=== PATIENT | male | born 1940 | race Caucasian/White ===

== ENCOUNTER 2018-03-30 12:50 | Emergency (ER) | payer OTHER ==
[2018-03-30] MEDS: amLODIPine 5 MG TAB PO (13:36)
== END 2018-03-30 14:38 | disposition home or self-care (01) ==
LOC: M ED 12:50
DX: S00.03XA Contusion of scalp, initial encounter (principal); W18.00XA Striking against unspecified object with subsequent fall, initial encounter; Y92.019 Unspecified place in single-family (private) house as the place of occurrence of the external cause
CPT/HCPCS: 70450

== ENCOUNTER 2018-11-04 08:13 | Emergency (ER) | payer MEDICARE, OTHER ==
[~2018-11-04] VITALS: Ht 170.2 cm; Wt 98.6 kg
[~2018-11-04 08:13] MED LIST: AMLO5TAB6 PO; ASPI81TAEC PO; AUGM500T34 PO; BETA0.0543 EXT; ELIQ5TAB PO; FINA5TAB2 PO; FISH100049 PO; FLOM0.4C39 PO; GARL10004 PO; GEMF600T5 PO; INDA125TA PO; MUPI2OI EXT; NAPR1TAB86 PO; QUIN1TAB3 PO; VITA100066 PO; XARE20TA
[2018-11-04] MEDS ORDERED: CVS400CA PO (08:32)
[2018-11-04] MEDS ORDERED: CETI10CA13 PO (08:32)
[2018-11-04 08:52] LABS: BASO % 0.5 % (0.0-1.0); EOS % 0.6 % (0.0-3.0); HEMATOCRIT 39.8 % (42.0-52.0); HEMOGLOBIN 13.7 g/dl (13.5-17.5); LYMPH # 1.3 10^3/uL (1.5-4.5); LYMPH % 19.8 % (24.0-44.0); MEAN CORPUSCULAR HEMOGLOBIN 32.6 pg (27.0-33.0); MEAN CORPUSCULAR HGB CONC 34.4 g/dl (32.0-36.5); MEAN CORPUSCULAR VOLUME 94.8 fl (80.0-96.0); MONO # 0.5 10^3/uL (0.0-0.8); MONO % 6.8 % (0.0-5.0); NEUTROPHILS # 4.8 10^3/uL (1.8-7.7); NEUTROPHILS % 71.5 % (36.0-66.0); PLATELET COUNT, AUTOMATED 205 10^3/uL (150-450); WHITE BLOOD COUNT 6.7 10^3/uL (4.0-10.0)
[2018-11-04] MEDS: NITROGLYCERIN 0.4 MG SUBL TABLET SL PRN ×6 (09:10→10:11)
[2018-11-04] MEDS ORDERED: ASPIRIN 81 MG CHEW TABLET PO ONE (09:15)
[2018-11-04 09:17] LABS: BLOOD UREA NITROGEN 17 MG/DL (7-18); CARBON DIOXIDE LEVEL 27 MEQ/L (21-32); CHLORIDE LEVEL 103 MEQ/L (98-107); CPK CREATINE PHOSPHOKINASE 119 U/L (39-308); CREATININE FOR GFR 1.12 MG/DL (0.70-1.30); GLOMERULAR FILTRATION RATE > 60.0 (>42); GLUCOSE, FASTING 149 MG/DL (70-100); MB/CK RELATIVE INDEX 3.36 (< OR =4); POTASSIUM SERUM 3.7 MEQ/L (3.5-5.1); SODIUM LEVEL 137 MEQ/L (136-145); TROPONIN I 0.15 NG/ML (< 0.10)
[2018-11-04 09:31] LABS: INR 1.55; PROTHROMBIN TIME 18.8 SECONDS (12.1-14.4)
[2018-11-04 09:33] LABS: PARTIAL THROMBOPLASTIN TIME 57.7 SECONDS (25.4-37.6)
--- NOTE | 2018-11-04 09:47 | REP ---
CHEST, SINGLE VIEW: Single view of the chest is performed and compared to a prior study of 04/25/2016. There is mild cardiomegaly. There are mild chronic interstitial changes. There is no acute infiltrate. The mediastinal silhouette is unchanged. There is a left single lead pacemaker. IMPRESSION: Cardiomegaly without evidence of acute infiltrate. Electronically Signed by Jersey Beckwith MD 11/06/2018 11:42 A
[2018-11-04 10:11] VITALS: BP 113/65
[2018-11-04 11:26] LABS: MB/CK RELATIVE INDEX 7.43 (< OR =4); TROPONIN I 0.86 NG/ML (< 0.10)
[2018-11-04] MEDS ORDERED: HEPARIN DRIP 25,000 UNITS in APPROPRIATE DILUENT 1 EA IV SCH (11:39)
[2018-11-04] MEDS ORDERED: HEPARIN SOD (PORCINE) 5000 UNITS/ML VIAL As Ordered ONE (11:45)
[2018-11-04] MEDS ORDERED: HEPARIN 25,000 UNITS/250 ML D5W BAG (100 UNITS/ML) As Ordered ONE (11:45)
[2018-11-04] MEDS ORDERED: HEPARIN SOD (PORCINE) 5000 UNITS/ML VIAL IV ONE (12:00)
[2018-11-04] MEDS ORDERED: TICAGRELOR 90 MG TABLET (BRILINTA) PO ONE ×2 (12:00)
[2018-11-04 12:38] VITALS: BP 140/78
--- NOTE | 2018-11-04 14:57 | ECGEPIP ---
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
--- NOTE | 2018-11-04 14:59 | ECGEPIP ---
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
== END 2018-11-04 12:39 | disposition short-term general hospital (02) ==
LOC: M ED 08:13
DX: I21.4 Non-ST elevation (NSTEMI) myocardial infarction (principal); I20.0 Unstable angina; Z95.0 Presence of cardiac pacemaker; R94.31 Abnormal electrocardiogram [ECG] [EKG]; I51.7 Cardiomegaly; I10 Essential (primary) hypertension; E78.5 Hyperlipidemia, unspecified; Z79.899 Other long term (current) drug therapy; Z88.8 Allergy status to other drugs, medicaments and biological substances

== ENCOUNTER 2019-04-29 18:51 | Inpatient (IN) | payer MEDICARE ==
[~2019-04-29] VITALS: Ht 170.2 cm; Wt 91.0 kg
[2019-04-29] MEDS: QUINAPRIL 20 MG TAB PO SCH (02:12)
[~2019-04-29 18:51] MED LIST changes: +CETI10CA13 PO; +CVS400CA PO
[2019-04-29] MEDS ORDERED: METO1TAB32 (18:58)
[2019-04-29] MEDS ORDERED: ECOT81TA5 PO (18:58)
[2019-04-29 19:30] LABS: VENOUS BASE EXCESS -0.9 (-2.0-2.0); VENOUS HCO3 23.4 MEQ/L (23.0-27.0); VENOUS PARTIAL PRESSURE CO2 37.9 mmHg (38.0-50.0); VENOUS PARTIAL PRESSURE O2 29.5 mmHg (30.0-50.0); VENOUS PH 7.409 UNITS (7.330-7.430); VENOUS STANDARD HCO3 22.7 MEQ/L; VENOUS TOTAL CO2 24.6 MEQ/L (24.0-28.0)
[2019-04-29 19:35] LABS: BASO % 0.1 % (0.0-1.0); HEMATOCRIT 38.2 % (42.0-52.0); LYMPH # 0.8 10^3/uL (1.5-5.0); LYMPH % 8.3 % (24.0-44.0); MEAN CORPUSCULAR HEMOGLOBIN 32.4 pg (27.0-33.0); MEAN CORPUSCULAR VOLUME 95.3 fl (80.0-96.0); MONO # 0.7 10^3/uL (0.0-0.8); MONO % 7.4 % (0.0-5.0); NEUTROPHILS # 8.1 10^3/uL (1.5-8.5); NEUTROPHILS % 83.6 % (36.0-66.0); PLATELET COUNT, AUTOMATED 145 10^3/uL (150-450); RED BLOOD COUNT 4.01 10^6/uL (4.30-6.10); WHITE BLOOD COUNT 9.7 10^3/uL (4.0-10.0)
[2019-04-29 20:08] LABS: ALBUMIN 3.5 GM/DL (3.2-5.2); ALT/SGPT 49 U/L (12-78); BILIRUBIN,DIRECT 0.3 MG/DL (0.0-0.2); BILIRUBIN,TOTAL 0.8 MG/DL (0.2-1.0); BLOOD UREA NITROGEN 25 MG/DL (7-18); CALCIUM LEVEL 8.6 MG/DL (8.8-10.2); CARBON DIOXIDE LEVEL 26 MEQ/L (21-32); CHLORIDE LEVEL 100 MEQ/L (98-107); CK-MB VALUE MASS < 1.0 NG/ML (<3.6); CPK CREATINE PHOSPHOKINASE 221 U/L (39-308); CREATININE FOR GFR 1.62 MG/DL (0.70-1.30); GLOMERULAR FILTRATION RATE 44.2 (>42); GLUCOSE, FASTING 146 MG/DL (70-100); MB/CK RELATIVE INDEX 0.45 (< OR =4); NT-PRO BNP 2148 PG/ML (<450); POTASSIUM SERUM 3.2 MEQ/L (3.5-5.1); SODIUM LEVEL 136 MEQ/L (136-145); THYROID STIMULATING HORMONE 0.825 uIU/ML (0.358-3.740); THYROXINE (T4) 7.9 UG/DL (4.5-12.0); TOTAL PROTEIN 7.5 GM/DL (6.4-8.2); TROPONIN I 0.02 NG/ML (< 0.10)
[2019-04-29] MEDS: IPRATROPIUM 0.5MG/ALBUTEROL 2.5MG INH SOL UD 3ML (DUONEB)(J7620) NEB SCH ×3 (20:10→21:41)
[2019-04-29 20:20] LABS: INFLUENZA A AMPLIFICATION NEGATIVE (NEGATIVE); INFLUENZA B AMPLIFICATION NEGATIVE (NEGATIVE)
[2019-04-29] MEDS ORDERED: FUROSEMIDE 100 MG/10 ML VIAL (J1940) IV ONE (20:30)
[2019-04-29] MEDS ORDERED: dexameTHASONE 20 MG/5 ML VIAL (J1100) IV ONE (20:30)
[2019-04-29] MEDS ORDERED: ATOR40TA75 PO (20:43)
[2019-04-29] MEDS ORDERED: XARE15TA PO (20:43)
[2019-04-29] MEDS ORDERED: QUIN10TA32 PO (20:43)
[2019-04-29] MEDS ORDERED: BRIL90TA PO (20:43)
[2019-04-29] MEDS ORDERED: METO1TAB32 PO (20:44)
[2019-04-29] MEDS ORDERED: NITR4TASL SL (20:44)
[2019-04-29 20:49] LABS: APPEARANCE, URINE CLEAR (CLEAR); BACTERIA, URINE AUTO NEGATIVE (NEGATIVE); BILIRUBIN, URINE AUTO NEGATIVE (NEGATIVE); BLOOD, URINE BLOOD 2+ (NEGATIVE); COLOR, URINE YELLOW (YELLOW); GLUCOSE, URINE (UA) AUTO NEGATIVE (NEGATIVE); KETONE, URINE AUTO NEGATIVE (NEGATIVE); LEUKOCYTE ESTERASE, URINE AUTO NEGATIVE (NEGATIVE); MUCUS, URINE SMALL (NEGATIVE); NITRITE, URINE AUTO NEGATIVE (NEGATIVE); PROTEIN, URINE AUTO 1+ mg/dL (NEGATIVE); RBC, URINE AUTO 3 /HPF (0-3); SPECIFIC GRAVITY URINE AUTO 1.025 (1.002-1.035); SQUAMOUS EPITHELIAL CELL UR AU 0 /HPF (0-6); UROBILINOGEN, URINE AUTO 0.2 mg/dL (0.0-2.0); WBC, URINE AUTO 1 /HPF (0-3)
[2019-04-29] MEDS ORDERED: ALL10TAB29 PO (21:02)
[2019-04-29] MEDS ORDERED: GARL1000 PO (21:02)
[2019-04-29] MEDS ORDERED: ACETAMINOPHEN TAB 650MG DOSE (2X325MG) PO PRN (22:45)
[2019-04-29] MEDS ORDERED: POTASSIUM CHLORIDE 10 MEQ SR TABLET PO ONE (22:45)
--- NOTE | 2019-04-29 22:46 | HPEPDOC ---
[facility] Medical History & Physical Date of Admission Apr 29, 2019 Date of Service: Apr 29, 2019 Attending Physician: SHELIA FOFANA MD History and Physical TIME OF SERVICE: 11:40 PM CHIEF COMPLAINT: Shortness of breath HISTORY OF PRESENT ILLNESS: This is a 78-year-old male who presents with complaints of shortness of breath that began Friday afternoon. Yesterday evening the shortness of breath became so bad that he decided come to the hospital. He denies having shortness of breath while lying down flat. At his baseline he walks with a cane, but was not sure if he had worsening shortness of breath with exertion. He denies having sick contacts, denies having chest pain, and denies feeling like feeling like he is retaining water. He is also c/o runny nose, cough productive of clear sputum, fever, chills, and difficulty standing up without assistance. After receiving Lasix in the ED and voiding his dyspnea improved substantially; he also received DuoNeb's and steroids. REVIEW OF SYSTEMS: 12 point review of systems negative except as listed in HPI PAST MEDICAL/ SURGICAL HISTORY: Chronic CAD, status post placement of 2 stents in November of this year [place]. Chronic A. fib. Chronic hypertension. Status post pacemaker placement. He denies having a history of COPD, CHF, or diabetes SOCIAL HISTORY: He is a former smoker, quit over 40 years ago. He has a history of working in [employer]. He is FAMILY HISTORY: CAD ALLERGIES: Please see below. HOME MEDICATIONS: Please see below. PHYSICAL EXAMINATION: VITAL SIGNS: Please see below. GENERAL APPEARANCE: Well-nourished, well-developed, not in apparent distress, does not appear toxic, does not appear chronically ill HEENT: Normocephalic, atraumatic. Mucous membranes moist and pink CARDIOVASCULAR: Regular rate and rhythm. No murmurs, rubs or gallops. Has pacemaker at the right upper chest LUNGS: His lips acyanotic. He is able to his fecal sentences without having to stop to take breaths. He is not using accessory muscles. His lungs are clear to auscultation bilaterally ABDOMEN: Soft and nontender on palpation MUSCULOSKELETAL: Range of motion is intact in all 4 extremities is no lower extremity edema NEUROLOGICAL:. Cranial nerves II-12 are grossly intact. Speech is not dysarthric PSYCHIATRIC: Alert and oriented, able to understand and follow commands LABORATORY DATA: See below. IMAGING: Chest x-ray shows increased interstitial markings but no lesion, the final report is pending ASSESSMENT: Mr. Alanis is a 78-year-old male with a past history of chronic CAD, chronic HTN, atrial fibrillation, and pacemaker who is admitted for management of acute dyspnea possibly due to acute CHF. PLAN: 1. Dyspnea cause to be determined Since his BNP is greater than 2000, CHF is on the differential His symptoms improved after receiving Lasix. The troponin, TSH and influenza panel are unremarkable. The VBG shows low O2 Plan: Admit to medical floor/telemetry/monitor, continuous pulse oximetry/follow-up Is/OS, daily weights, fluid restriction to 2L or 67oz, salt restriction to 2G / f/u respiratory panel & final chest x-ray report / repeat BNP before discharge for prognostic purposes because high levels and levels that dont trend down are linked with increased mortality and rehospitalization /continue with Lasix 40 mg IV daily pending Echo 2. Bilateral lower extremity weakness. The patient reports having to walk with a cane at his baseline, but is having problems standing up on his own without assistance over the last few days. Plan: PT consult to prevent deconditioning during this admission and to det ermine if his inpatient rehabilitation versus home rehabilitation when he is ready to go home 3. PORTER versus CKD Based on our records, it is not unclear what his baseline BUN, creatinine, her GFR are Plan: Follow-up BMP and UA and Urine electrolytes for FEUrea rather than FENa bc he is on a diuretic 4. Hypokalemia Likely due to diuretics. Plan; replete potassium as needed and follow-up magnesium 5. Thrombocytopenia Plan: Follow up CBC / monitor for bleeding 6. Hyperglycemia He denies being diabetic. Plan: Follow-up A1c 7. Atrial fibrillation CHADSVASc scrore = 4 Plan: Continue with metoprolol and rivaroxaban 8. Chronic CAD He had 2 stents placed in November Plan: Continue with metoprolol, brillinta, and atorvastatin, / suspect is not on aspirin reduce the risk of bleeding while he is taking rivaroxaban / 9. Chronic HTN Plan: Continue metoprolol, quinapril, amlodipine / hold indapamide (home med) while giving lasix DVT prophylaxis with rivaroxaban Disposition pending clinical course [place] Early Screen for Discharge Planning = 18 points = Scores of ?10 indicate the need for specialized discharge planning services = Case management consult for possible placement +/- home appliance technician and home RN Vital Signs Vital Signs Date Time Temp Pulse Resp B/P (MAP) Pulse Ox O2 Delivery O2 Flow Rate FiO2 04/29/19 21:30 61 20 103/54 (70) 95 Room Air 04/29/19 18:52 100.5 Laboratory Data Labs 24H Laboratory Tests 2 04/29/19 19:20: Immature Granulocyte % (Auto) 0.6, Neutrophils (%) (Auto) 83.6H, Lymphocytes (%) (Auto) 8.3L, Monocytes (%) (Auto) 7.4H, Eosinophils (%) (Auto) 0.0, Basophils (%) (Auto) 0.1, Neutrophils # (Auto) 8.1, Lymphocytes # (Auto) 0.8L, Monocytes # (Auto) 0.7, Eosinophils # (Auto) 0.0, Basophils # (Auto) 0.0, Nucleated Red Blood Cells % (auto) 0.0, Blood Gas Bicarbonate Standard 22.7, Venous Blood pH 7.409, Venous Blood Partial Pressure CO2 37.9L, Venous Blood Partial Pressure O2 29.5L, Venous Blood Total Carbon Dioxide 24.6, Venous Blood HCO3 23.4, Venous Blood Oxygen Saturation 55.0L, Venous Blood Base Excess -0.9, Anion Gap 10, Glomerular Filtration Rate 44.2, Lactic Acid Level 1.6, Calcium Level 8.6L, Total Bilirubin 0.8, Direct Bilirubin 0.3H, Aspartate Amino Transf (AST/SGOT) 44H, Alanine Aminotransferase (ALT/SGPT) 49, Alkaline Phosphatase 149H, Total Creatine Kinase 221, Creatine Kinase MB < 1.0, Creatine Kinase MB Relative Index 0.45, Troponin I 0.02, XC-Jic-G-Type Natriuretic Peptide 2148H, Total Protein 7.5, Albumin 3.5, Albumin/Globulin Ratio 0.88L, Thyroid Stimulating Hormone (TSH) 0.825, Thyroxine (T4) 7.9, Influenza Type A (RT-PCR) NEGATIVE, Influenza Type B (RT-PCR) NEGATIVE 04/29/19 20:34: Urine Color YELLOW, Urine Appearance CLEAR, Urine pH 5.0, Urine Specific [place] 1.025, Urine Protein 1+H, Urine Glucose (Auto)(UA) NEGATIVE, Urine Ketones (Auto) NEGATIVE, Urine Blood 2+H, Urine Nitrite NEGATIVE, Urine Bilirubin NEGATIVE, Urine Urobilinogen 0.2, Urine Leukocyte Esterase (Auto) NEGATIVE, Urine WBC (Auto) 1, Urine RBC (Auto) 3, Urine Hyaline Casts (Auto) 0, Urine Bacteria (Auto) NEGATIVE, Urine Squamous Epithelial Cells 0, Urine Mucus (Auto) SMALL, Urine Sperm (Auto) CBC/BMP Laboratory Tests 04/29/19 19:20 Microbiology Microbiology 04/29/19 Blood Culture, Received Pending 04/29/19 Urine Culture, Received Pending 04/29/19 Blood Culture, Received Pending Home Medications Scheduled Amlodipine Besylate (Amlodipine Besylate) 5 Mg Tab, 5 MG PO DAILY Atorvastatin Calcium (Atorvastatin Calcium) 40 Mg Tablet, 40 MG PO DAILY Cetirizine HCl (Cetirizine HCl) 10 Mg Tablet, 10 MG PO QPM TAKES AT DINNERTIME Cholecalciferol (Vitamin D3) (Vitamin D3) 400 Unit Capsule, 400 UNIT PO DAILY Finasteride (Finasteride) 5 Mg Tab, 5 MG PO DAILY Garlic (Garlic Oil) 1,000 Mg Capsule, 1 CAP PO DAILY Indapamide (Indapamide) 1.25 Mg Tab, 1.25 MG PO DAILY Metoprolol Succinate (Metoprolol Succinate) 25 Mg Tab.er.24h, 25 MG PO DAILY Quinapril HCl (Quinapril HCl) 10 Mg Tablet, 10 MG PO BID Rivaroxaban (Xarelto) 15 Mg Tablet, 15 MG PO QPM TAKES AT DINNERTIME Tamsulosin HCl (Flomax) 0.4 Mg Cap, 0.8 MG PO DAILY Ticagrelor Base (Brilinta) 90 Mg Tablet, 90 MG PO BID Scheduled PRN Betamethasone Dipropionate (Betamethasone Dipropionate) 0.05 % Cre, 0.05 % EXT DAILY PRN for RASH/ITCHING APPLIES TO RASH SPOTS NEEDED Nitroglycerin (Nitrostat) 0.4 Mg Tab.subl, 0.4 MG SL NITRO PRN for CHEST PAIN Allergies Coded Allergies: propoxyphene (Verified Allergy, Unknown, 11/04/18) A-FIB/CHADSVASC A-FIB History Current/History of A-Fib/PAF?: Yes Current PO Anticoag Therapy: Yes Age/Risk Factor Scoring CHADSVASC: CHADSVASC Response (Comments) Value Age Risk Factor Age >/= 75 years old 2 Gender Risk Factor Male 0 Hx of CHF No 0 Hx of HTN Yes 1 Hx of Stroke/TIA/or VTE No 0 Hx of Diabetes No 0 Hx of Vascular Disease No 0 Total 3 Treatment Treatment ordered: Rivaroxaban SHELIA FOFANA MD Apr 29, 2019 22:46
[2019-04-29 23:11] LABS: MAGNESIUM LEVEL 1.5 MG/DL (1.8-2.4)
[2019-04-30] VITALS (15 sets, daily range): BP systolic 104–132; BP diastolic 50–66; O2SAT 93–98
[2019-04-30] MEDS ORDERED: NITROGLYCERIN 0.4 MG SUBL TABLET SL PRN (01:45)
[2019-04-30] MEDS: CETIRIZINE (ZyrTEC) 10 MG TAB PO SCH ×2 (02:00→18:05)
[2019-04-30] MEDS: RIVAROXABAN 15 MG TAB (XARELTO) PO SCH ×2 (02:00→18:05)
[2019-04-30] MEDS: TICAGRELOR 90 MG TABLET (BRILINTA) PO SCH ×3 (02:03→20:37)
[2019-04-30 03:39] LABS: CREATININE,RANDOM URINE 71.8 MG/DL; POTASSIUM RANDOM URINE 54.9 MEQ/L
[2019-04-30] MEDS ORDERED: MAG SULF 1GM/100ML (MAG RUN) 1 GM in IV 1 EA IV ONE (05:30)
[2019-04-30 05:35] LABS: ABG BASE EXCESS -1.8 (-2.0-2.0); ABG HCO3 21.2 MEQ/L (22.0-26.0); ABG O2 SATURATION 96.7 % (95.0-99.0); ABG PARTIAL PRESSURE CO2 30.8 mmHg (35.0-45.0); ABG PARTIAL PRESSURE O2 87.3 mmHg (75.0-100.0); ABG STANDARD HCO3 22.9 MEQ/L (22.0-26.0); ABG TOTAL CO2 22.1 MEQ/L (23.0-31.0); ABG pH (ARTERIAL) 7.455 UNITS (7.350-7.450)
[2019-04-30 07:15] LABS: HEMOGLOBIN 11.9 g/dl (13.5-17.5); MEAN CORPUSCULAR HEMOGLOBIN 31.6 pg (27.0-33.0); MEAN CORPUSCULAR VOLUME 93.1 fl (80.0-96.0); PLATELET COUNT, AUTOMATED 141 10^3/uL (150-450); RED BLOOD COUNT 3.76 10^6/uL (4.30-6.10); WHITE BLOOD COUNT 12.5 10^3/uL (4.0-10.0)
[2019-04-30 07:34] LABS: HEMOGLOBIN A1c 6.2 %
[2019-04-30 07:46] LABS: CALCIUM LEVEL 8.5 MG/DL (8.8-10.2); CREATININE FOR GFR 2.01 MG/DL (0.70-1.30); GLOMERULAR FILTRATION RATE 34.5 (>42); MAGNESIUM LEVEL 2.3 MG/DL (1.8-2.4)
[2019-04-30] MEDS ORDERED: INDAPAMIDE 1.25MG TABLET PO SCH (09:00)
[2019-04-30] MEDS ORDERED: amLODIPine 5 MG TAB PO SCH (09:00)
[2019-04-30] MEDS ORDERED: POTASSIUM CHLORIDE 10 MEQ SR TABLET PO ONE (09:00)
[2019-04-30] MEDS: FINASTERIDE 5 MG TAB PO SCH (09:15)
[2019-04-30] MEDS: METOPROLOL SUCC *XL* 25MG TAB (TopROL *XL*) PO SCH (09:17)
[2019-04-30] MEDS: TAMSULOSIN 0.4 MG CAP PO SCH (09:17)
[2019-04-30] MEDS: QUINAPRIL 20 MG TAB PO SCH (09:19)
[2019-04-30] MEDS: ATORVASTATIN 20 MG TAB PO SCH (09:20)
[2019-04-30] MEDS: FUROSEMIDE 100 MG/10 ML VIAL (J1940) IV SCH (09:24)
[2019-04-30] MEDS: HumaLOG INSULIN (NovoLOG) PER UNIT SC SCH ×2 (12:00→18:05)
--- NOTE | 2019-04-30 12:28 | REP ---
Clinical: Cough and dyspnea . Comparison: 11/04/2018 . Findings: The mediastinum and cardiac silhouette are stable and within normal limits for portable technique. Pacemaker again identified satisfactory position. The lung hung are clear without acute consolidation, effusion, or pneumothorax. Skeletal structures are intact. Impression: No acute cardiopulmonary process appreciated. Electronically Signed by Reece Fournier MD 04/30/2019 12:19 P
--- NOTE | 2019-04-30 14:17 | IPNPDOC ---
Text Note Date of Service The patient was seen on 04/30/19. NOTE Subjective: Patient stated that his shortness of breath significantly improved since yesterday. He denies fever, chills, nausea, vomiting. He stated that he is able to walk. Objective: GENERAL APPEARANCE: Well-nourished, well-developed, not in apparent distress HEENT: PERRLA, EOMI CARDIOVASCULAR: Irregularly irregular E LUNGS: . Clear to auscultation bilaterally on room air ABDOMEN: Distended, median abdominal hernia, nontender MUSCULOSKELETAL: Range of motion intact in all 4 extremities. NEUROLOGICAL: Cranial nerves 2-12 are grossly intact. Assessment and plan Patient is 78 years old male with past medical history of atrial fibrillation, heart attack, status post pacemaker placement presented hospital with increased shortness of breath, chills and fever associated with runny nose and cough. Patient was found to have increased BNP over 1999. On 04/30/19 blood culture positive for gram-positive cocci. Sepsis: On admission patient had fever 101.6, creatinine was 1.62, leukocytes count increased to 12.5, first set of blood culture came back positive for gram- positive cocci. However, patient looks nontoxic, his increased leukocytes count could be attributed to steroid injection which was done yesterday Patient is afebrile, does not have chills. The first set of blood culture could be contaminated. The plan is to repeat blood culture, start broad-spectrum antibiotic.There is concern for gram-positive bacteremia in the setting of pacemaker Will check pro calcitonin, we'll check respiratory viral panel Bilateral lower extremity weakness. Markedly improved The patient reports having to walk with a cane at his baseline, but is having problems standing up on his own without assistance over the last few days. Continue PT/OT PORTER Most likely secondary to prerenal causes, Fe urea 28.2 Continue to monitor creatinine I will hold Lasix and hang inhibitors for today due to rising of creatinine Hypokalemia Replaced Thrombocytopenia Continue to monitor Hyperglycemia HbA1c 6.2 indicates diabetes type 2, fasting glucose level of 146 Patient will need diabetes education on the discharge Insulin sliding scale Atrial fibrillation Continue oral anticoagulation Heart rate is under control Chronic CAD Patient denied any chest pain He had 2 stents placed in November Continue cardioprotective medications Chronic hypertension Blood pressures under control -Hold Hang inhibitor and Lasix due to poor kidney function VS,Higinio, I+O VS, Fishbone, I+O Laboratory Tests 04/29/19 19:20 04/30/19 07:05 Vital Signs Date Time Temp Pulse Resp B/P (MAP) Pulse Ox O2 Delivery O2 Flow Rate FiO2 04/30/19 12:00 97.3 61 18 113/58 (76) 94 04/30/19 08:00 Room Air I&O- Last 24 Hours up to 6 AM 04/30/19 06:00 Intake Total 0 ml Output Total 375 ml Balance -375 ml ZULMA GAO DO Apr 30, 2019 14:17
[2019-04-30] MEDS ORDERED: GLUCOSE 4 GM CHEW TABLET PO PRN (14:45)
[2019-04-30] MEDS ORDERED: GLUCAGON FOR INJ 1 MG VIAL (J1610) SC PRN (14:45)
[2019-04-30] MEDS ORDERED: DEXTROSE 50% 50 ML SYRINGE IV PRN (14:45)
[2019-04-30] MEDS: CEFTAROLINE FOSAMIL 400 MG in D5W MINI-BAG PLUS 50 ML IV SCH (15:33)
--- NOTE | 2019-04-30 17:04 | REP ---
HISTORY: Acute kidney injury. COMPARISON: None. Multiple ultrasonographic images of the right kidney show the right kidney to measure 12.4 x 5 x 5.5 cm. The renal cortical echoes are increased and cortical medullary differentiation is less than optimal. There are no solid masses seen. Arising from the inferior pole of the right kidney, there is a round hypoechoic nodule which measures 2.1 x 1.7 x 2 cm. I cannot confirm that this is a simple cyst due to the increased echoes centrally. There is no hydronephrosis. The left kidney measures 11.4 x 4 x 6.1 cm. The renal cortical echoes are increased and there is less than optimal cortical medullary differentiation. Multiple anechoic and nearly anechoic structures are seen arising from the left kidney, the largest three measured 3.0 x 2.6 x 3.3 cm, 3.9 x 2.6 x 2.9 cm and 2.5 x 2 x 1.7 cm, all of these exhibit posterior wall enhancement and increased through transmission. There is no definite hydronephrosis or solid masses. Doppler of the urinary bladder was obtained to assess for uro-jet phenomenon which was seen bilaterally. IMPRESSION: 1. I cannot confirm a simple right renal cyst. Pre- and postcontrast enhanced renal CT is recommended. 2. Suspect multiple simple left renal cysts, however, these too can be re-evaluated with CT. Electronically Signed by Merlin Garcia DO 05/03/2019 02:27 P
--- NOTE | 2019-04-30 20:15 | ECHO ---
DATE OF PROCEDURE: 04/30/2019 Date of : 1940 Age: 78 REFERRING PROVIDER: Dr. Darryl Marquez PATIENT LOCATION: Room 3215 REASON FOR THE STUDY: Shortness of breath. 2D MEASUREMENTS: IVS: 1.3 cm LV: 5.7 cm LVPW: 1.2 cm LA: 4.8 cm Aorta: 3.0 cm IVC: 2.4 cm DOPPLER MEASUREMENTS: Peak velocity across the aortic valve: 1.8 meters per second Peak velocity across the LVOT: 0.95 meters per second Peak gradient across the aortic valve: 12 mmHg Mean gradient across the aortic valve: 6 mmHg Mitral E: 0.85 Maximum tricuspid valve velocity: 2.9 meters per second 2D COMMENTS: 1. Mildly enlarged left ventricle with mildly increased left ventricular wall thickness but a markedly depressed global left ventricular systolic function. There was global hypokinesis. The estimated left ventricular systolic ejection fraction is 30%. 2. Mildly enlarged left atrium. The right atrium and the right ventricle also appeared to be mildly enlarged. The right ventricular free wall was not well visualized. T 3. The atrial septum appeared to be normal without evidence of defect or shunt. 4. Normal aortic root. 5. Trace pericardial effusion noted, no evidence of cardiac tamponade. 6. Mildly calcified aortic valve with minimally restricted leaflet motion. Mildly calcified mitral annulus with normal anterior mitral valve leaflet motion. Normal tricuspid valve and pulmonic valve. The proximal pulmonary artery branches also appear to be normal. 7. The inferior vena cava was mildly enlarged, central venous pressure might be elevated. DOPPLER: It detects trace aortic regurgitation, moderate mitral regurgitation, moderate tricuspid regurgitation and trace pulmonic regurgitation. The calculated pulmonary artery systolic pressure varies between 40-50 mmHg. Assessment of the left ventricular diastolic function was limited in view of the underlying arrhythmias. IMPRESSION: 1. Moderately severe global left ventricular systolic dysfunction with global hypokinesis and a mildly enlarged left ventricle. 2. Aortic valve sclerosis with trace aortic regurgitation and trivial aortic stenosis. Could not rule out more severe aortic stenosis. 3. Mitral annulus calcification with moderate mitral regurgitation and mildly enlarged left atrium. 4. Moderate tricuspid regurgitation with moderate pulmonary hypertension and dilated right atrium. 5. Trace pulmonic regurgitation detected. 6. Trace pericardial effusion was noted. 7. The inferior vena cava is dilated, central venous pressure might be elevated. 8. Pacemaker wire artifact noted. Probably a biventricular (biV) pacemaker type. MTDD
--- NOTE | 2019-04-30 21:25 | ECGEPIP ---
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
[2019-05-01] VITALS (24 sets, daily range): BP systolic 100–138; BP diastolic 58–71; O2SAT 94–100
[2019-05-01] MEDS: CEFTAROLINE FOSAMIL 400 MG in D5W MINI-BAG PLUS 50 ML IV SCH ×2 (01:22→13:58)
[2019-05-01 05:37] LABS: HEMATOCRIT 36.2 % (42.0-52.0); HEMOGLOBIN 12.2 g/dl (13.5-17.5); MEAN CORPUSCULAR HGB CONC 33.7 g/dl (32.0-36.5); PLATELET COUNT, AUTOMATED 156 10^3/uL (150-450); RED BLOOD COUNT 3.81 10^6/uL (4.30-6.10); WHITE BLOOD COUNT 13.5 10^3/uL (4.0-10.0)
[2019-05-01 05:58] LABS: CREATININE FOR GFR 1.53 MG/DL (0.70-1.30); GLOMERULAR FILTRATION RATE 47.2 (>42); MAGNESIUM LEVEL 2.4 MG/DL (1.8-2.4)
[2019-05-01] MEDS: TICAGRELOR 90 MG TABLET (BRILINTA) PO SCH ×2 (09:01→20:48)
[2019-05-01] MEDS: TAMSULOSIN 0.4 MG CAP PO SCH (09:02)
[2019-05-01] MEDS: ATORVASTATIN 20 MG TAB PO SCH (09:02)
[2019-05-01] MEDS: FINASTERIDE 5 MG TAB PO SCH (09:02)
[2019-05-01] MEDS: METOPROLOL SUCC *XL* 25MG TAB (TopROL *XL*) PO SCH (09:03)
[2019-05-01] MEDS: HumaLOG INSULIN (NovoLOG) PER UNIT SC SCH ×3 (09:03→17:58)
[2019-05-01] MEDS ORDERED: SLF 3 ML SYR IV PRN (09:30)
[2019-05-01] MEDS: SLF 3 ML SYR IV SCH ×2 (13:58→20:49)
--- NOTE | 2019-05-01 16:40 | IPNPDOC ---
Text Note Date of Service The patient was seen on 05/01/19. NOTE NOTE Subjective: No any acute events overnight. Shortness of breath resolved, patient stated that he feels much better He denies fever, chills, nausea, vomiting. Objective: GENERAL APPEARANCE: Well-nourished, well-developed, not in apparent distress HEENT: PERRLA, EOMI CARDIOVASCULAR: Irregularly irregular E LUNGS: . Clear to auscultation bilaterally on room air ABDOMEN: Distended, median abdominal hernia, nontender MUSCULOSKELETAL: Range of motion intact in all 4 extremities. NEUROLOGICAL: Cranial nerves 2-12 are grossly intact. DATE OF PROCEDURE: 04/30/2019 Date of : 1940 Age: 78 REFERRING PROVIDER: Dr. Darryl Marquez PATIENT LOCATION: Room 3215 REASON FOR THE STUDY: Shortness of breath. 2D MEASUREMENTS: IVS: 1.3 cm LV: 5.7 cm LVPW: 1.2 cm LA: 4.8 cm Aorta: 3.0 cm IVC: 2.4 cm DOPPLER MEASUREMENTS: Peak velocity across the aortic valve: 1.8 meters per second Peak velocity across the LVOT: 0.95 meters per second Peak gradient across the aortic valve: 12 mmHg Mean gradient across the aortic valve: 6 mmHg Mitral E: 0.85 Maximum tricuspid valve velocity: 2.9 meters per second 2D COMMENTS: 1. Mildly enlarged left ventricle with mildly increased left ventricular wall thickness but a markedly depressed global left ventricular systolic function. There was global hypokinesis. The estimated left ventricular systolic ejection fraction is 30%. 2. Mildly enlarged left atrium. The right atrium and the right ventricle also appeared to be mildly enlarged. The right ventricular free wall was not well visualized. T 3. The atrial septum appeared to be normal without evidence of defect or shunt. 4. Normal aortic root. 5. Trace pericardial effusion noted, no evidence of cardiac tamponade. 6. Mildly calcified aortic valve with minimally restricted leaflet motion. Mildly calcified mitral annulus with normal anterior mitral valve leaflet motion. Normal tricuspid valve and pulmonic valve. The proximal pulmonary artery branches also appear to be normal. 7. The inferior vena cava was mildly enlarged, central venous pressure might be elevated. DOPPLER: It detects trace aortic regurgitation, moderate mitral regurgitation, moderate tricuspid regurgitation and trace pulmonic regurgitation. The calculated pulmonary artery systolic pressure varies between 40-50 mmHg. Assessment of the left ventricular diastolic function was limited in view of the underlying arrhythmias. IMPRESSION: 1. Moderately severe global left ventricular systolic dysfunction with global hypokinesis and a mildly enlarged left ventricle. 2. Aortic valve sclerosis with trace aortic regurgitation and trivial aortic stenosis. Could not rule out more severe aortic stenosis. 3. Mitral annulus calcification with moderate mitral regurgitation and mildly enlarged left atrium. 4. Moderate tricuspid regurgitation with moderate pulmonary hypertension and dilated right atrium. 5. Trace pulmonic regurgitation detected. 6. Trace pericardial effusion was noted. 7. The inferior vena cava is dilated, central venous pressure might be elevated. 8. Pacemaker wire artifact noted. Probably a biventricular (biV) pacemaker type. Assessment and plan Patient is 78 years old male with past medical history of atrial fibrillation, heart attack, status post pacemaker placement presented hospital with increased shortness of breath, chills and fever associated with runny nose and cough. Patient was found to have increased BNP over 1999. On 04/30/19 blood culture positive for gram-positive cocci. Repeated blood culture before starting of antibiotic was negative. However patient has leukocytosis with increased pro- calcitonin. Continue treatment with antibiotic. Continue diuresis for acute systolic CHF. Sepsis: On admission patient had fever 101.6, creatinine was 1.62, leukocytes count increased to 12.5, first set of blood culture came back positive for gram- positive cocci. Patient is afebrile, does not have chills. The first set of blood culture could be contaminated. There was concern for gram-positive bacteremia in the setting of pacemaker. I started broad-spectrum antibiotic Ceftaroline empirically. On 05/01/19 repeated blood culture negative, however patient has leukocytosis 13 .5 which is rising today and elevated pro-calcitonin of 3. I will discuss antibiotic therapy with on Friday. Not obvious source of infection, chest x-ray negative for infiltrate, respiratory viral panel negative I will proceed with abdominal and pelvis CAT scan I switched Ceftaroline to IV Zosyn due to increased WBC Bilateral lower extremity weakness. Markedly improved The patient reports having to walk with a cane at his baseline, but is having problems standing up on his own without assistance over the last few days. Continue PT/OT PORTER Most likely secondary to prerenal causes, Fe urea 28.2 Continue to monitor creatinine Improved after Lasix was on hold Hypokalemia Replaced Thrombocytopenia Continue to monitor Hyperglycemia HbA1c 6.2 indicates diabetes type 2, fasting glucose level of 146 Patient will need diabetes education on the discharge Insulin sliding scale Atrial fibrillation Continue oral anticoagulation Heart rate is under control Chronic CAD Patient denied any chest pain He had 2 stents placed in November Continue cardioprotective medications Chronic hypertension Blood pressures under control Continue home medication Acute CHF with reduced ejection fraction of 30 % Most likely shortness of breath attributed to CHF exacerbation given increased BNP. Patient has not been diagnosed before with CHF I's and O's Lasix IV Shortness of breath Improved Most likely secondary to CHF exacerbation VS,Higinio, I+O VS, Higinio, I+O Laboratory Tests 05/01/19 05:19 Vital Signs Date Time Temp Pulse Resp B/P (MAP) Pulse Ox O2 Delivery O2 Flow Rate FiO2 05/01/19 12:00 97.6 60 16 97 Room Air 05/01/19 12:00 114/64 (81) I&O- Last 24 Hours up to 6 AM 05/01/19 06:00 Intake Total 1260 ml Output Total 1050 ml Balance 210 ml ZULMA MARQUEZ DO May 01, 2019 16:40
[2019-05-01] MEDS: PIPERACILLIN/TAZOBACTAM SOD 4.5 GM in D5W MINI-BAG PLUS 50 ML IV SCH (17:57)
[2019-05-01] MEDS: CETIRIZINE (ZyrTEC) 10 MG TAB PO SCH (17:58)
[2019-05-01] MEDS: RIVAROXABAN 15 MG TAB (XARELTO) PO SCH (17:58)
[2019-05-01] MEDS: ENTRESTO 24-26MG TABLET (SACUBITRIL/VALSARTAN) PO SCH (20:47)
[2019-05-02] VITALS (24 sets, daily range): BP systolic 112–125; BP diastolic 60–72; O2SAT 94–96
[2019-05-02] MEDS: PIPERACILLIN/TAZOBACTAM SOD 4.5 GM in D5W MINI-BAG PLUS 50 ML IV SCH ×3 (00:49→17:14)
[2019-05-02 05:29] LABS: HEMATOCRIT 34.7 % (42.0-52.0); HEMOGLOBIN 11.8 g/dl (13.5-17.5); MEAN CORPUSCULAR HEMOGLOBIN 32.4 pg (27.0-33.0); MEAN CORPUSCULAR VOLUME 95.3 fl (80.0-96.0); PLATELET COUNT, AUTOMATED 175 10^3/uL (150-450); RED BLOOD COUNT 3.64 10^6/uL (4.30-6.10)
[2019-05-02 05:46] LABS: BLOOD UREA NITROGEN 37 MG/DL (7-18); CALCIUM LEVEL 8.7 MG/DL (8.8-10.2); CARBON DIOXIDE LEVEL 25 MEQ/L (21-32); CHLORIDE LEVEL 106 MEQ/L (98-107); CREATININE FOR GFR 1.22 MG/DL (0.70-1.30); GLOMERULAR FILTRATION RATE > 60.0 (>42); GLUCOSE, FASTING 140 MG/DL (70-100); POTASSIUM SERUM 3.7 MEQ/L (3.5-5.1); SODIUM LEVEL 137 MEQ/L (136-145)
[2019-05-02] MEDS: SLF 3 ML SYR IV SCH ×3 (05:59→20:59)
--- NOTE | 2019-05-02 08:32 | REP ---
CT ABDOMEN/PELVIS WITHOUT CONTRAST: CT abdomen/pelvis performed without oral or IV contrast. Sagittal and coronal reconstruction images are performed. Comparison made with prior study, 02/21/2016. No infiltrate is seen in the visualized lung bases. There is mild cardiomegaly. Liver is grossly unremarkable. The patient has had a prior cholecystectomy. I do not see definite biliary dilatation. The spleen, adrenals, and pancreas are grossly unremarkable. There are bilateral renal cysts present without hydronephrosis. The cysts are exophytic with the largest in the mid left kidney 3.7 cm in diameter. Punctate calcification is seen in the mid left renal collecting system. The ureters are not dilated. There is mild atherosclerotic calcification of the abdominal aorta without aneurysm. There is no adenopathy. There is no free air or free fluid. There is no bowel wall thickening. The appendix is normal. Urinary bladder is mildly distended and grossly unremarkable. Prostate is enlarged. There are degenerative changes of the spine. There are small inguinal hernias containing fat. There is a slightly enlarged right inguinal lymph node. IMPRESSION: Slightly enlarged right inguinal lymph node. Patient status post cholecystectomy. Normal appendix. Bilateral renal cysts. No hydronephrosis. Enlarged prostate. Electronically Signed by Jersey Beckwith MD 05/02/2019 12:25 P
[2019-05-02] MEDS: HumaLOG INSULIN (NovoLOG) PER UNIT SC SCH ×3 (09:24→17:15)
[2019-05-02] MEDS: METOPROLOL SUCC *XL* 25MG TAB (TopROL *XL*) PO SCH (09:25)
[2019-05-02] MEDS: TAMSULOSIN 0.4 MG CAP PO SCH (09:25)
[2019-05-02] MEDS: ATORVASTATIN 20 MG TAB PO SCH (09:25)
[2019-05-02] MEDS: FINASTERIDE 5 MG TAB PO SCH (09:26)
[2019-05-02] MEDS: FUROSEMIDE 100 MG/10 ML VIAL (J1940) IV SCH (09:26)
[2019-05-02] MEDS: TICAGRELOR 90 MG TABLET (BRILINTA) PO SCH ×2 (09:26→20:58)
[2019-05-02] MEDS: ENTRESTO 24-26MG TABLET (SACUBITRIL/VALSARTAN) PO SCH ×2 (09:26→20:59)
--- NOTE | 2019-05-02 14:52 | CR ---
DATE OF CONSULTATION: 05/02/2019 REFERRING PHYSICIAN: Galileo Marquez MD REASON FOR CONSULTATION: Acute on chronic systolic and diastolic heart failure. HISTORY OF PRESENT ILLNESS: Mr. Kristofer Alanis is a pleasant 78-year-old male with coronary heart disease. He had a myocardial infarct November 2018 following which he underwent placement of coronary stents at [facility] in [place]. He has systemic hypertension, hypercholesterolemia, and diabetes. He has chronic atrial fibrillation with advanced AV block for which he is status post implantation of a [employer] single chamber pacemaker 04/25/2016. Following the myocardial infarct November 2018, he has noticed exertional dyspnea with above ordinary physical activity. Beginning about one week prior to admission, he noticed a deterioration in exertional shortness of breath such that he was getting short of breath with any activity. No orthopnea or paroxysmal nocturnal dyspnea (PND). He was not noticing any leg or ankle swelling. No chest pain or chest discomfort. No palpitations. No presyncope or syncope. No claudication. He was noticing in the week prior to admission some nonproductive cough. On admission he was noted to have heart failure. Echocardiogram Doppler 04/30/2019 reported LVEF 30% with global LV hypokinesis and mild dilatation of the left ventricle (5.7 cm end diastole). Eccentric/concentric left ventricle hypertrophy was present with ventricular septum 1.3 cm and posterior wall 1.2 cm. Left atrium was moderately enlarged (4.8 cm). The right atrium and right ventricle were thought to appear mildly enlarged. Trace pericardial effusion. Mildly calcified aortic valve with appearance of minimally restricted leaflet motion. Mild mitral annular calcification. Moderate mitral regurgitation. Trace aortic regurgitation. Moderate tricuspid regurgitation. Estimated pulmonary artery systolic pressure 40-50 mmHg. Pacemaker lead identified. IVC dilated suggestive of elevated central venous pressure. OTHER PAST MEDICAL AND SURGICAL HISTORY: Coronary heart disease status post coronary stents times two November 2018 and status post myocardial infarct November 2018. Chronic atrial fibrillation. Systemic hypertension. 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 Bilateral cataracts. Hearing loss. Heart murmur. Previous implantable loop recorder (removed at the time of pacemaker implant). Hypercholesterolemia. Varicose veins. Bronchitis. Colon polyps. Hemorrhoids. Status post cholecystectomy. Benign prostatic hypertrophy (BPH). Urinary incontinence. Arthritis. Previous vertebral fracture. Previous finger fracture. Chronic back pain. Muscle weakness. History of skin cancer. Obesity. FAMILY HISTORY: Systemic hypertension in a brother and daughter. History of cancer in a brother and a daughter. SOCIAL HISTORY: , resident of [place], [place]. Remote prior smoking history. Occasional alcohol. 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 REVIEW OF SYSTEMS: Shortness of breath as per HPI above. Urinary incontinence. Decreased hearing. Decreased vision secondary to cataracts. Hemorrhoids. Diarrhea. Arthritis. Chronic back pain. Muscle weakness. No anxiety, panic attacks or depression. All other 10 point review of systems negative. ADVERSE DRUG REACTIONS: 1. PROPOXYPHENE. MEDICATIONS PRIOR TO ADMISSION: - amlodipine 5 mg daily - atorvastatin 40 mg daily - betamethasone cream as needed for rash/itching as needed - cetirizine 10 mg every evening - vitamin D 400 units daily - finasteride 5 mg daily - garlic oil 1000 mg daily - indapamide 1.25 mg daily - metoprolol succinate 25 mg daily - nitroglycerin 0.4 mg sublingual as needed - quinapril 10 mg daily - Xarelto 15 mg every evening - tamsulosin 0.8 mg daily - Brilinta 90 mg twice a day CURRENT MEDICATIONS IN HOSPITAL: - acetaminophen 650 mg every 4 hours as needed - atorvastatin 40 mg daily - Zyrtec 10 mg daily - finasteride 5 mg daily - furosemide 40 mg IV daily - Humalog insulin before meals per sliding scale - metoprolol succinate 25 mg daily - nitroglycerin 0.4 mg every 5 minutes as needed - piperacillin/tazobactam 4.5 grams every 8 hours IV - Xarelto 15 mg daily - Entresto 24-26 mg one twice a day (first dose yesterday evening) - tamsulosin 0.8 mg daily - Brilinta 90 mg twice a day PHYSICAL EXAMINATION: Pleasant obese man who appear his chronologic age without any respiratory or psychologic distress. Height 67 inches, weight 93.8 kg, BMI 32.4. Temperature 97.9, pulse 64 (regular), respiratory rate 18, blood pressure 117/71, oxygen saturation 96% on room air. No conjunctival pallor, scleral icterus or xanthomas. Upper dentures present. Many missing lower teeth with some dental fillings. Lower teeth were in poor condition. Oral mucosa was moist and without pallor or stenosis. Jugular venous pulsations were at 18 cm from the angle of the jaw with the patient sitting up at 90 degrees. Trachea midline. No palpable thyroid. No clubbing, nailbed stenosis or splinter hemorrhages. No skin lesions, skin pallor or icterus. Oriented to person, place and time. Mood and affect were normal. Curvature of the spine normal. Gait was slow. Gross motor strength and tone appeared normal. No abnormal muscle atrophy, fasciculations, or tremors. Respiratory expansion effort was good. No crackles or wheezes. No dullness to percussion. Pacemaker in situ left pectoral region. No palpable apex beat. No parasternal lifts, heaves or thrills. First heart sound was normal. Second sound was paradoxical. No S3 appreciated. Grade 1 systolic ejection murmur right second interspace and grade 1 pansystolic murmur at the apex. Carotids were normal in volume and contour and without bruits. No palpable abdominal aorta. No abdominal bruits. Femoral pulses normal. Pedal pulses normal. Support stockings were present. Less than 1 mm pitting edema at mid tibial level bilaterally. No varicose veins apparent but support stockings in situ, difficult to assess. Abdomen was obese, soft, nontender with normal bowel sounds. No hepatosplenomegaly or organomegaly. Liver span difficult to assess due to abdominal obesity. Stool for occult blood not presently indicated. INVESTIGATIONS: Echocardiogram Doppler findings as summarized above. Electrocardiogram 04/29/2019 shows underlying atrial fibrillation, ventricular paced rhythm at 60 beats per minute. I have independently visualized the patient's semiupright portable AP chest x-ray acquired 04/29/2019 at 7:51 p.m. It shows cardiomegaly despite the portable technique. Presence of a single chamber pacemaker in situ over the left pectoral region ([employer]) with a bipolar screw fixation pacing lead at the right ventricle apex. No hyperinflation. Presence of mild pulmonary vascular redistribution. No pleural effusion. Lungs hung otherwise appear clear. Laboratory work 05/02/2019 showed WBC 10.0, hemoglobin 11.8, hematocrit 34.7, platelets 175. Sodium 137, potassium 3.7, chloride 106, CO2 25, BUN 37, creatinine 1.22. Estimated GFR greater than 60. Glucose 140, calcium 8.7. Laboratory work 04/29/2019 was reviewed: Albumin 3.5, TSH 0.825, free T4 7.9, NT-proBNP 2148, bilirubin normal at 0.8, direct bilirubin elevated at 0.3, alkaline phosphatase elevated at 149, AST elevated at 44, ALT normal at 49, magnesium low at 1.5. ASSESSMENT/RECOMMENDATIONS: 1. Acute on chronic systolic and diastolic heart failure. This is secondary to ischemic cardiomyopathy secondary to prior myocardial infarction (November 2018). Also contributing to this patient's heart failure would be chronic RV pacing with LBBB type morphology. [place] Heart Association Class 3, NYHA Functional Class 3. At present, he is decompensated on examination with ongoing elevated jugular venous pulsations. He has associated moderate mitral regurgitation. Agree with discontinuation of ELVIS inhibitor and placing the patient on Entresto. Continue Entresto 24-26 mg twice a day. I will add spironolactone. At this point, I think he can come off of the IV furosemide and be placed on torsemide. We will increase the dosage of metoprolol succinate. I do not think he needs to be on digoxin at this time. I recommend upgrading the patient from a single chamber pacemaker to either a biventricular pacemaker or a biventricular ICD. This was discussed with the patient and his and he was willing to have this done. As far as I know, upgrade of the patient's cardiac rhythm management device would be something that would be done Friday-Friday and not on weekends. I will be signing over to Dr. Danilo Rice who takes over care of this patient at 8:00 a.m. on Friday05/03/2019. I will leave it with Dr. Rice to choose who he wants to use as the motion picture projectionist to upgrade to either a biventricular pacemaker or a biventricular ICD as well as whether he wants to arrange to have this occur as a transfer during this hospitalization or if he wants to handle this as elective as an outpatient procedure. I will order cardiac rehabilitation. Agree with oral fluid restriction and sodium restriction. 2. Ischemic cardiomyopathy. As per systolic heart failure category above. 3. CAD ([place] vessel) without angina. The patient is status post myocardial infarct November 2018 with status post coronary stents times two November 2018. He is angina free. Continue Brilinta and Xarelto. As noted above I will increase the dosage of metoprolol succinate. Agree with discontinuation of amlodipine. Continue nitroglycerin sublingual as needed. Continue atorvastatin 40 mg daily. He has been take off of ELVIS inhibitor and is now on valsartan. 4. Status post coronary stents times two November 2018. As per CAD category above. 5. Chronic atrial fibrillation. The patient is ventricular paced. Continue Xarelto. 6. Systemic hypertension. Blood pressure presently controlled. As noted above, I will introduce some spironolactone and increase the dose of metoprolol as part of the management of heart failure. He will be switched from IV furosemide to torsemide. Agree with discontinuation of ELVIS inhibitor and amlodipine. Continue valsartan (via Entresto). 7. Status post pacemaker in situ ([employer]) single chamber pacemaker implanted 04/25/2016 because of advanced AV block. The patient is ventricular paced. As noted above, the plan will be for the patient to be sent to [place] for upgrade to a biventricular pacemaker or a biventricular ICD. 8. Nonrheumatic mitral regurgitation secondary to mitral annular calcification and cardiomyopathy. Recent echocardiogram during this hospitalization reported moderate degree of mitral regurgitation. Management will be management of heart failure. 9. Hypercholesterolemia. Agree with a cardiac diet. Continue atorvastatin 40 mg daily. 10. 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 As per CAD category above. 11. Advanced AV block. Status post single chamber pacemaker. Thank you kindly for asking me to participate in the cardiac care of Mr. Kristofer Alanis.
--- NOTE | 2019-05-02 16:42 | IPNPDOC ---
Text Note Date of Service The patient was seen on 05/02/19. NOTE Subjective: No any acute events overnight. Patient stated that his shortness of breath resolved. He denies fever, chills, nausea, vomiting. Objective: GENERAL APPEARANCE: Well-nourished, well-developed, not in apparent distress HEENT: PERRLA, EOMI, positive JVD CARDIOVASCULAR: Irregularly irregular, S1-S2 LUNGS: . Clear to auscultation bilaterally on room air ABDOMEN: Distended, median abdominal hernia, nontender MUSCULOSKELETAL: Range of motion intact in all 4 extremities. NEUROLOGICAL: Cranial nerves 2-[address] ABDOMEN/PELVIS WITHOUT CONTRAST: CT abdomen/pelvis performed without oral or IV contrast. Sagittal and coronal reconstruction images are performed. Comparison made with prior study, 02/21/2016. No infiltrate is seen in the visualized lung bases. There is mild cardiomegaly. Liver is grossly unremarkable. The patient has had a prior cholecystectomy. I do not see definite biliary dilatation. The spleen, adrenals, and pancreas are grossly unremarkable. There are bilateral renal cysts present without hydronephrosis. The cysts are exophytic with the largest in the mid left kidney 3.7 cm in diameter. Punctate calcification is seen in the mid left renal collecting system. The ureters are not dilated. There is mild atherosclerotic calcification of the abdominal aorta without aneurysm. There is no adenopathy. There is no free air or free fluid. There is no bowel wall thickening. The appendix is normal. Urinary bladder is mildly distended and grossly unremarkable. Prostate is enlarged. There are degenerative changes of the spine. There are small inguinal hernias containing fat. There is a slightly enlarged right inguinal lymph node. IMPRESSION: Slightly enlarged right inguinal lymph node. Patient status post cholec ystectomy. Normal appendix. Bilateral renal cysts. No hydronephrosis. Enlarged prostate. Electronically Signed by Jersey Beckwith MD 05/02/2019 12:25 P DD: Jersey Beckwith MD, MD 05/01/19 1724 DT: YOANA 05/02/19 0832 DS: FIORDALIZA 05/02/19 1225 05/02/19 1225 [~ rep ct labl] Assessment and plan Patient is 78 years old male with past medical history of atrial fibrillation, heart attack, status post pacemaker placement presented hospital with increased shortness of breath, chills and fever associated with runny nose and cough. Patient was found to have increased BNP over 1999. On 04/30/19 blood culture positive for gram-positive cocci. Repeated blood culture before starting of antibiotic was negative. However patient has leukocytosis with increased pro- calcitonin. Continue treatment with antibiotic. Continue diuresis for acute systolic CHF. Sepsis: Resolved On admission patient had fever 101.6, creatinine was 1.62, leukocytes count increased to 12.5, first set of blood culture came back positive for gram- positive cocci. Patient is afebrile, does not have chills. The first set of blood culture could be contaminated. There was concern for gram-positive bacteremia in the setting of pacemaker. I started broad-spectrum antibiotic Ceftaroline empirically. On 05/01/19 repeated blood culture negative, however patient has leukocytosis 13.5 which is rising today and elevated pro-calcitonin of 3. I will discuss antibiotic therapy with Dr. Molina on Friday. Not obvious source of infection, chest x-ray negative for infiltrate, respiratory viral panel negative. I switched Ceftaroline to IV Zosyn due to increased WBC on 05/01/19 On 05/01/19 CT abdomen negative Bilateral lower extremity weakness. Markedly improved The patient reports having to walk with a cane at his baseline, but is having problems standing up on his own without assistance over the last few days. Continue PT/OT PORTER Improved Most likely secondary to prerenal causes, Fe urea 28.2 Continue to monitor creatinine Improved after Lasix was on hold Hypokalemia Replaced Thrombocytopenia Continue to monitor Hyperglycemia HbA1c 6.2 indicates diabetes type 2, fasting glucose level of 146 Patient will need diabetes education on the discharge Insulin sliding scale Atrial fibrillation Continue oral anticoagulation Heart rate is under control Chronic CAD Patient denied any chest pain He had 2 stents placed in November Continue cardioprotective medications Status post coronary stents times two November 2018. As per CAD category above Chronic hypertension Blood pressures under control Continue home medication Acute CHF with reduced ejection fraction of 30 % Secondary to ischemic cardiomyopathy Most likely shortness of breath attributed to CHF exacerbation given increased BNP. Patient has not been diagnosed before with CHF I's and O's Entresto, and c/w torsemide spironolactone added Dr Hewitt recommended upgrading the patient from a single chamber pacemaker to either a biventricular pacemaker or a biventricular ICD. 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 -The patient is ventricular paced. As noted above, the plan will be for the patient to be sent to [place] for upgrade to a biventricular pacemaker or a biventricular ICD. Hypercholesterolemia. Continue atorvastatin 40 mg daily. VS,Fishbone, I+O VS, Fishbone, I+O Laboratory Tests 05/02/19 05:06 Vital Signs Date Time Temp Pulse Resp B/P (MAP) Pulse Ox O2 Delivery O2 Flow Rate FiO2 05/02/19 12:00 97.2 62 20 125/60 (81) 97 Room Air I&O- Last 24 Hours up to 6 AM 05/02/19 06:00 Intake Total 500 ml Output Total 2225 ml Balance -1725 ml ZULMA GAO DO May 02, 2019 16:42
[2019-05-02] MEDS: RIVAROXABAN 15 MG TAB (XARELTO) PO SCH (17:14)
[2019-05-02] MEDS: TORSEMIDE 10 MG TABLET PO SCH (17:14)
[2019-05-02] MEDS: CETIRIZINE (ZyrTEC) 10 MG TAB PO SCH (17:14)
[2019-05-03] VITALS (16 sets, daily range): BP systolic 106–137; BP diastolic 55–79; O2SAT 93–98
[2019-05-03] MEDS: PIPERACILLIN/TAZOBACTAM SOD 4.5 GM in D5W MINI-BAG PLUS 50 ML IV SCH ×2 (00:38→09:34)
[2019-05-03 05:00] LABS: HEMATOCRIT 39.2 % (42.0-52.0); MEAN CORPUSCULAR HEMOGLOBIN 31.6 pg (27.0-33.0); MEAN CORPUSCULAR HGB CONC 33.2 g/dl (32.0-36.5); MEAN CORPUSCULAR VOLUME 95.1 fl (80.0-96.0); PLATELET COUNT, AUTOMATED 219 10^3/uL (150-450); RED BLOOD COUNT 4.12 10^6/uL (4.30-6.10)
[2019-05-03 05:24] LABS: CALCIUM LEVEL 8.4 MG/DL (8.8-10.2); CREATININE FOR GFR 1.37 MG/DL (0.70-1.30); GLOMERULAR FILTRATION RATE 53.6 (>42); POTASSIUM SERUM 3.7 MEQ/L (3.5-5.1)
[2019-05-03] MEDS: SLF 3 ML SYR IV SCH ×3 (06:14→21:22)
[2019-05-03] MEDS: HumaLOG INSULIN (NovoLOG) PER UNIT SC SCH ×3 (09:16→17:30)
[2019-05-03] MEDS: ENTRESTO 24-26MG TABLET (SACUBITRIL/VALSARTAN) PO SCH ×2 (09:34→21:21)
[2019-05-03] MEDS: SPIRONOLACTONE 12.5MG PER 1/2 TABLET PO SCH (09:34)
[2019-05-03] MEDS: TICAGRELOR 90 MG TABLET (BRILINTA) PO SCH ×2 (09:34→21:21)
[2019-05-03] MEDS: TAMSULOSIN 0.4 MG CAP PO SCH (09:34)
[2019-05-03] MEDS: METOPROLOL SUCC (TopROL XL) 50MG **XL** TAB PO SCH (09:37)
[2019-05-03] MEDS: TORSEMIDE 10 MG TABLET PO SCH ×2 (09:37→17:51)
[2019-05-03] MEDS: ATORVASTATIN 20 MG TAB PO SCH (09:37)
[2019-05-03] MEDS: FINASTERIDE 5 MG TAB PO SCH (09:37)
--- NOTE | 2019-05-03 16:00 | IPNPDOC ---
Text Note Date of Service The patient was seen on 05/03/19. NOTE Subjective: No any acute events overnight. Patient stated that he doesn't have any shortness of breath, chest pain or palpitations Objective: GENERAL APPEARANCE: Well-nourished, well-developed, not in apparent distress HEENT: PERRLA, EOMI, positive JVD CARDIOVASCULAR: Irregularly irregular, S1-S2 LUNGS: . Clear to auscultation bilaterally on room air ABDOMEN: Distended, median abdominal hernia, nontender MUSCULOSKELETAL: Range of motion intact in all 4 extremities. NEUROLOGICAL: Cranial nerves 2-12 are grossly intact. Assessment and plan Patient is 78 years old male with past medical history of atrial fibrillation, heart attack, status post pacemaker placement presented hospital with increased shortness of breath, chills and fever associated with runny nose and cough. Patient was found to have increased BNP over 1999. On 04/30/19 blood culture positive for gram-positive cocci. Repeated blood culture before starting of antibiotic was negative. Not obvious source of infection, chest x-ray negative for infiltrate, respiratory viral panel negative. However patient had leukocytosis with increased pro-calcitonin. I started antibiotic empirically. Patient received diuresis with positive effect. Shortness of breath resolved. Echo shows systolic CHF with ejection fraction of 30%. Dr Hewitt recommended upgrading the patient from a single chamber pacemaker to either a biventricular pacemaker or a biventricular ICD. Patient will be transferred to [facility]. Transfer will organized by . Sepsis: Resolved On admission patient had fever 101.6, creatinine was 1.62, leukocytes count increased to 12.5, first set of blood culture came back positive for gram- positive cocci. Patient is afebrile, does not have chills. The first set of blood culture could be contaminated. There was concern for gram-positive bacteremia in the setting of pacemaker. I started broad-spectrum antibiotic Ceftaroline empirically. On 05/01/19 repeated blood culture negative, however patient has leukocytosis 13.5 which was rising and elevated pro-calcitonin of 3. Not obvious source of infection, chest x-ray negative for infiltrate, respiratory viral panel negati ve. I switched Ceftaroline to IV Zosyn due to increased WBC on 05/01/19 On 05/01/19 CT abdomen negative. Bilateral lower extremity weakness. Markedly improved The patient reports having to walk with a cane at his baseline, but is having problems standing up on his own without assistance over the last few days. Continue PT/OT PORTER Improved Most likely secondary to prerenal causes, Fe urea 28.2 Continue to monitor creatinine Improved after Lasix was on hold Hypokalemia Replaced Thrombocytopenia Continue to monitor Hyperglycemia HbA1c 6.2 indicates diabetes type 2, fasting glucose level of 146 Patient will need diabetes education on the discharge Insulin sliding scale Atrial fibrillation Continue oral anticoagulation Heart rate is under control Chronic CAD Patient denied any chest pain He had 2 stents placed in November Continue cardioprotective medications Status post coronary stents times two November 2018. As per CAD category above Chronic hypertension Blood pressures under control Continue home medication Acute CHF with reduced ejection fraction of 30 % Secondary to ischemic cardiomyopathy Most likely shortness of breath attributed to CHF exacerbation given increased BNP. Patient has not been diagnosed before with CHF I's and O's Entresto, and c/w torsemide spironolactone added Dr Hewitt recommended upgrading the patient from a single chamber pacemaker to either a biventricular pacemaker or a biventricular ICD. 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 -The patient is ventricular paced. As noted above, the plan will be for the patient to be sent to [place] for upgrade to a biventricular pacemaker or a biventricular ICD. Hypercholesterolemia. Continue atorvastatin 40 mg daily. VS,Fishbone, I+O VS, Fishbone, I+O Laboratory Tests 05/03/19 04:49 Vital Signs Date Time Temp Pulse Resp B/P (MAP) Pulse Ox O2 Delivery O2 Flow Rate FiO2 05/03/19 12:00 98.0 60 18 111/64 (80) 95 Room Air 05/03/19 06:00 2.0 I&O- Last 24 Hours up to 6 AM 05/03/19 06:00 Intake Total 2350 ml Output Total 3045 ml Balance -695 ml ZULMA GAO DO May 03, 2019 16:00
[2019-05-03] MEDS: RIVAROXABAN 15 MG TAB (XARELTO) PO SCH (17:51)
[2019-05-03] MEDS: CETIRIZINE (ZyrTEC) 10 MG TAB PO SCH (17:51)
--- NOTE | 2019-05-03 19:45 | CR ---
DATE OF CONSULTATION: 05/03/2019 REASON FOR CONSULTATION: Streptococcus group C bacteremia and right leg cellulitis. CONSULTING PHYSICIAN: Dr. Galileo Marquez. ATTENDING PHYSICIAN: Dr. Robert Molina. HISTORY OF PRESENT ILLNESS: Mr. Alanis is a 78-year-old male with a history of ischemic heart disease status post stent placement in 11/2018 in [place] as well as congestive heart failure who presented to [facility] on after experiencing shortness of breath while lying flat. The patient stated that around Friday he started developing some shortness of breath at which point he felt worse than his baseline. He also stated that around he developed what he stated was chills and possibly a fever. His who was present stated that he was having so much chills that they placed a heating pads on his back which unfortunately resulted in him burning himself as he left the heating pad on too long. The patient denied any nausea, vomiting and he denies any diarrhea or constipation. He stated that he presented to [facility] because his breathing was not improving and he felt like it was getting worse. When he presented to the emergency department he was found to be in acute decompensated congestive heart failure and had received Lasix. The patient noticed improvement in his symptoms and was transferred to the medial surgical floor. Since being admitted to the hospital the patient has had a mild white count. He has remained afebrile during his hospitalization however he did develop erythema on his right leg which he states has never happened before. He admits to hypersensitivity of his skin and frequently scratches however he states that he has not had cellulitis in the past. He denies any pain with it however does state that he has some itching. The patient had received blood cultures which one resulted positive for streptococcus group C. Infectious disease was consulted for further management of the patient's bacteremia and right leg cellulitis. REVIEW OF SYSTEMS: CONSTITUTIONAL: The patient denies any fevers but admits to occasional chills. He denies any night sweats. He denies any unintentional weight loss or weight gain. HEENT: Patient denies any dysphagia or odynophagia. He denies any changes in his vision or hearing. CARDIOVASCULAR: Patient denies any chest pain, palpitations, or feelings of heart racing. PULMONARY: Patient currently denies any shortness of breath. He states that his breathing has improved since hospitalization. He denies any cough or sputum production. ABDOMEN: Patient denies any nausea, vomiting, diarrhea, or constipation. He denies any abdominal pain. GENITOURINARY: He denies any dysuria or increased frequency or urgency. SKIN: The patient admits to right sided erythema of the leg. He admits to chronic itching on his skin and dry skin. He also admits to chronic infections of his feet. MUSCULOSKELETAL: Patient denies any muscle weakness. He denies any changes in his gait. NEUROLOGICAL: He denies any change in his speech or gait. He denied any muscle weakness. PSYCHIATRIC: Patient denies any history of anxiety or depression. ENDOCRINE: The patient admits to a new diagnosis of diabetes mellitus. He denies any history of thyroid disease. He denied any cold or heat intolerance. HEMATOLOGIC: Patient denies any easy bruising or bleeding. He denies any history of deep vein thrombosis or pulmonary embolism. He does admit to a history of CAD. PAST MEDICAL HISTORY: 1. Coronary artery disease status post stent placement times two in November 2018. 2. Chronic atrial fibrillation currently on anticoagulation. 3. Chronic essential hypertension. 4. Diabetes mellitus/pre-diabetes. SURGICAL HISTORY: Pacemaker placement 2019. SOCIAL HISTORY: The patient is a former quit smoker. He quit approximately 4 years ago. He did work in the [employer]. He is currently and lives with his . FAMILY HISTORY: The patient has a family history of coronary artery disease. PHYSICAL EXAMINATION: VITAL SIGNS: Temperature 98, pulse 60, respiratory rate 18, blood pressure 127/65, pulse oximetry 98% on room air. GENERAL: Patient is awake, alert and oriented. He does not appear in any acute distress. He is lying in bed accompanied by his . HEENT: Atraumatic, normocephalic. Eyes are non-icteric. Trachea is midline. Mucous membranes are pink and moist. CARDIOVASCULAR: The patient has a regular rate and rhythm. There are no clicks, rubs, or murmurs. He does have a pacemaker placed in the right upper chest. RESPIRATORY: Patient has clear vesicular breath sounds bilaterally with good respiratory effort. No wheezes, rhonchi or rales. He is not using accessory muscles. There is no dullness to percussion. ABDOMEN: Patient is obese. Abdomen is soft and it is nondistended and nontender to palpation. There is no rebound tenderness or guarding. There is normoactive bowel sounds throughout. MUSCULOSKELETAL: Patient has good range of motion in all four extremities. SKIN: Patient has two areas of lesions on his back where he had burned himself with a heating pad. He also has erythema extending from the right ankle up to approximately right below the knee. EXTREMITIES: As stated previously the patient has erythema of the right leg extending from the ankle up to the knee. He also has areas of excoriation between the toes and likely bruno between the webs of the toes as well. He has trace bilateral pitting edema. His pulses are full and equal bilaterally upper and lower extremities. PSYCHE: Mood and affect appear appropriate. LABORATORY DATA: Hematology: White blood cells 11.0, hemoglobin 13, hematocrit 39.2, platelets 219. Chemistries: Sodium 140, potassium 3.7, chloride 104, carbon dioxide 27, BUN 36, creatinine 1.37, fasting glucose 110. Calcium 8.4. Blood cultures from 04/29 positive for streptococcus group C. Blood culture from 04/30/2019 were negative for any growth. IMAGING: Completed on 04/30/2019, CT abdomen and pelvis demonstrated slightly enlarged right inguinal lymph node status post cholecystectomy and normal appendix bilateral renal cyst. No hydronephrosis and enlarged prostate. ASSESSMENT AND PLAN: 1. Strep group C bacteremia. Patient has a strep group C bacteremia likely secondary to his cellulitis. He has previously completed three days of Zosyn. We will switch the patient on to Amoxicillin 875 mg by mouth twice a day and repeat blood cultures. 2. Cellulitis of the right leg. Patient has cellulitis of the right leg that seems to have occurred after his hospitalization. Patient did state that he was having some chills before hospitalization which would suggest that his bacteremia was present before the rash had appeared. Patient may have erysipelas. In any course the patient has received three days of Zosyn and is currently being changed to Amoxicillin 875 mg by mouth twice a day. He will need to complete 7 days of amoxicillin. The patient should not have his pacemaker replaced until after his cellulitis has completely resolved. 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 He was started on some steroid cream as an outpatient. We will order triamcinolone acetate to be applied to the patient's dry spots on his legs to avoid further scratching and possibly causing further cellulitis. 3. Tinea pedis. Patient has athletes foot bilaterally, especially between the webs of his toes. We will start Lotrimin cream to be applied to the webs of his toes twice a day. My faculty preceptor for this patient encounter was physically present during the encounter and was fully available. All aspects of the patient interview, examination, medical decision making process, and medical care plan development were reviewed and approved by the faculty preceptor. The faculty preceptor is aware and concurs with the plan as stated in the body of this note and will attest to such by his/her cosignature. MIRNA
[2019-05-03] MEDS: AMOXICILLIN 875 MG TAB PO SCH (21:21)
[2019-05-03] MEDS: CLOTRIMAZOLE 1% TOPICAL CREAM 30GM TOP SCH (21:22)
[2019-05-03] MEDS: TRIAMCINOLONE ACET 0.1% CREAM 15 GM TOP SCH (21:22)
[2019-05-04] VITALS (23 sets, daily range): BP systolic 100–144; BP diastolic 54–95; O2SAT 92–97
[2019-05-04] MEDS: SLF 3 ML SYR IV SCH ×3 (05:21→21:12)
[2019-05-04 06:02] LABS: HEMOGLOBIN 13.9 g/dl (13.5-17.5); MEAN CORPUSCULAR HEMOGLOBIN 31.5 pg (27.0-33.0); MEAN CORPUSCULAR HGB CONC 33.1 g/dl (32.0-36.5); MEAN CORPUSCULAR VOLUME 95.2 fl (80.0-96.0); PLATELET COUNT, AUTOMATED 217 10^3/uL (150-450); RED BLOOD COUNT 4.41 10^6/uL (4.30-6.10); WHITE BLOOD COUNT 11.7 10^3/uL (4.0-10.0)
[2019-05-04 06:35] LABS: CALCIUM LEVEL 8.6 MG/DL (8.8-10.2); CREATININE FOR GFR 1.29 MG/DL (0.70-1.30); GLOMERULAR FILTRATION RATE 57.5 (>42); POTASSIUM SERUM 3.6 MEQ/L (3.5-5.1)
--- NOTE | 2019-05-04 07:39 | IPNPDOC ---
Text Note Date of Service The patient was seen on 05/04/19. NOTE Subjective: -No any acute events overnight. -No report of shortness of breath, chest pain or palpitations -Yesterday morning was noted to have a rash on his right distal leg that was warm to touch, however with a noted history of hypersensitive dermatitis and had been on broad-spectrum antibiotic Zosyn IV and was MRSA negative. He was seen by ID and plan was made to continue treatment with ampicillin for the strep C that was identified in the blood stream prior during this hospitalization and addition of triamcinolone to reduce risk for port of entry from scratching in the setting of hypersensitivity dermatitis. Objective: GENERAL APPEARANCE: Well-nourished, well-developed, NAD HEENT: MARY EOMI, continues to have +JVD CARDIOVASCULAR: Irregularly irregular, S1-S2 LUNGS: . Clear to auscultation bilaterally without fabiola crackles or wheezing ABDOMEN: Obese, distended, median abdominal hernia, otherwise nontender MUSCULOSKELETAL: Range of motion intact in all 4 extremities. NEUROLOGICAL: Cranial nerves 2-12 are grossly intact. EXT:He has trace bilateral pitting edema. His pulses are full and equal bilaterally upper and lower extremities. SKIN: Right leg erythema from ankle to sub-knee. Assessment and plan 78 years old man with a history of atrial fibrillation, [place], s/p single chamber pacemaker who presented hospital with increased shortness of breath, chills and fever associated with runny nose and cough and found to have increased BNP >2000 and 04/30/19 blood culture positive for gram-positive cocci with negative repeat blood cultures and now noted cellulitis. He has therefore been treated with antibiotics for a potential infection, diuresis of decompensated heart failure, with an echo showing systolic CHF with ejection fraction of 30%. Thus far, Dr Hewitt recommended upgrading the patient from a single chamber pacemaker to either a biventricular pacemaker or a biventricular ICD in [place] with plan for transfer to [facility] to be organized by Dr. Rice. Meanwhile ID was consulted given new right lower extremity rash and is now on ampicillin for treatment of cellulitis as per the recent blood culture data. Sepsis: Resolved, on treatment for cellulitis. On admission patient had fever 101.6, creatinine was 1.62, leukocytes count increased to 12.5, first set of blood culture came back positive for gram- positive cocci. -There was concern for gram-positive bacteremia in the setting of pacemaker. -Was initially started on broad-spectrum antibiotic Ceftaroline, then zosyn and finally de-escalated to ampicillin after 04/30 cultures grew sensitive Group C strep. -On 05/01/19 repeated blood culture negative, however patient has leukocytosis 13.5 which was rising and elevated pro-calcitonin of 3 without an obvious source of infection, chest x-ray was negative for infiltrate, CT A/P was wnl, and viral panel was negative. -On 05/03 was noted to have RLE rash with erythema and warmth c/w cellulitis, ID consulted, to continue ampicillin Chronic CAD -Patient denied any chest pain -He had 2 stents placed in 11/2018 -Continue cardioprotective medications -The dose of metoprolol was increased -Continue Brilinta and Xarelto Chronic hypertension -Blood pressures under control -Continue home medication Acute CHF with reduced ejection fraction of 30 % -Secondary to ischemic cardiomyopathy -Most likely shortness of breath attributed to CHF exacerbation given increased BNP. Patient has not been diagnosed before with CHF -stricy I's and O's -continue Entresto -c/w torsemide -c/w metoprolol -continue spironolactone -Dr Hewitt recommended upgrading the patient from a single chamber pacemaker to either a biventricular pacemaker or a biventricular ICD. This was discussed with the patient and his and he was willing to have this done. Cardiology facilitating transfer to [place]. 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 -The patient is ventricular paced. As noted above, the plan will be for the patient to be sent to [place] for upgradeto a biventricular pacemaker or a biventricular ICD. Hypercholesterolemia. -Continue atorvastatin 40mg daily. Bilateral lower extremity weakness. -The patient reports having to walk with a cane at his baseline, but is having problems standing up on his own without assistance over the last few days. -Markedly improved -Continue PT/OT PORTER: Improving -Most likely prerenal in the setting of sepsis, Fe urea 28.2 -Continue to monitor creatinine -Improved after Lasix was on hold, and responding well even after diuresis was resumed. Hypokalemia -Resolved after repletion Thrombocytopenia -Continue to monitor Hyperglycemia -HbA1c 6.2 indicates prediabetes, fasting glucose level of 146 -Patient will need diabetes education on the discharge -Insulin sliding scale Atrial fibrillation -Continue oral anticoagulation -Heart rate is under control DVT prophylaxis: On xarelto VS,Fishbone, I+O VS, Fishbone, I+O Laboratory Tests 05/04/19 05:18 Vital Signs Date Time Temp Pulse Resp B/P (MAP) Pulse Ox O2 Delivery O2 Flow Rate FiO2 05/04/19 04:00 96.7 62 16 105/59 (74) 99 Room Air 05/03/19 06:00 2.0 I&O- Last 24 Hours up to 6 AM 05/04/19 06:00 Intake Total 650 ml Output Total 2400 ml Balance -1750 ml OLINDA RAHMAN MD May 04, 2019 07:39
[2019-05-04] MEDS ORDERED: POTASSIUM CHLORIDE 10 MEQ SR TABLET PO ONE (08:00)
[2019-05-04] MEDS: ENTRESTO 24-26MG TABLET (SACUBITRIL/VALSARTAN) PO SCH ×2 (08:07→21:12)
[2019-05-04] MEDS: AMOXICILLIN 875 MG TAB PO SCH ×2 (08:07→21:12)
[2019-05-04] MEDS: FINASTERIDE 5 MG TAB PO SCH (08:08)
[2019-05-04] MEDS: ATORVASTATIN 20 MG TAB PO SCH (08:09)
[2019-05-04] MEDS: TAMSULOSIN 0.4 MG CAP PO SCH (08:10)
[2019-05-04] MEDS: TORSEMIDE 10 MG TABLET PO SCH ×2 (08:11→17:23)
[2019-05-04] MEDS: METOPROLOL SUCC (TopROL XL) 50MG **XL** TAB PO SCH (08:12)
[2019-05-04] MEDS: CLOTRIMAZOLE 1% TOPICAL CREAM 30GM TOP SCH ×2 (08:12→21:11)
[2019-05-04] MEDS: TRIAMCINOLONE ACET 0.1% CREAM 15 GM TOP SCH ×2 (08:12→21:11)
[2019-05-04] MEDS: HumaLOG INSULIN (NovoLOG) PER UNIT SC SCH ×3 (08:13→17:24)
[2019-05-04] MEDS: SPIRONOLACTONE 12.5MG PER 1/2 TABLET PO SCH (09:06)
[2019-05-04] MEDS: TICAGRELOR 90 MG TABLET (BRILINTA) PO SCH ×2 (09:06→21:12)
[2019-05-04] MEDS: RIVAROXABAN 15 MG TAB (XARELTO) PO SCH (17:23)
[2019-05-04] MEDS: CETIRIZINE (ZyrTEC) 10 MG TAB PO SCH (17:23)
--- NOTE | 2019-05-04 18:08 | IPN ---
DATE: 05/04/2019 SUBJECTIVE: The patient was seen and examined this morning. He currently states that he is doing well. He denies any chills or fevers. He denies any pain in his right foot. The patient currently plans to be discharged with eventual followup for replacement of his pacemaker once his cellulitis clears. OBJECTIVE: VITAL SIGNS: Temperature 97.8, pulse 66, respiratory rate 18, blood pressure 144/95, pulse oximetry 99% on room air. GENERAL: Patient is awake, alert and oriented. He does not appear in any acute distress. He is conversant. HEENT: Atraumatic, normocephalic. Eyes are nonicteric. Trachea is midline. His mucous membranes are pink and moist. CARDIOVASCULAR: Patient has normal S1, S2 with a regular rate and rhythm. With no clicks, rubs, or murmurs. He has a pacemaker in place in the right upper chest. RESPIRATORY: Patient has clear vesicular breath sounds bilaterally. No wheezes, rhonchi or rales. ABDOMEN: Patient is obese. His abdomen is soft and nondistended. There is no tenderness to palpation. There is no rebound tenderness or guarding. There is normoactive bowel sounds throughout. SKIN: Patient has two areas of leakage on his back from where he previously burned himself. He also areas of excoriation between the toes. Currently has Nystatin powder in place. There is trace bilateral pitting edema. The patient has full and equal pulses bilaterally in the upper and lower extremities. EXTREMITIES: Patient has erythema of the right leg extending up to the ankle. There is trace bilateral pitting edema. PSYCHE: Patient's mood and affect appear appropriate. LABORATORY DATA: Hematology: White blood cell 11.7, hemoglobin 13.9, hematocrit 42, platelet count 217. Chemistry: Sodium 138, potassium 3.6, chloride 103, CO2 27, BUN 36, creatinine 1.29, fasting glucose 102, calcium 8.6. ASSESSMENT AND PLAN: 1. Strep group C bacteremia. The patient had one blood culture positive for group C bacteremia. His current culture has been negative. He completed three days of Zosyn and was switched to Amoxicillin 875 mg twice a day yesterday. 2. Cellulitis in the right leg. Patient has cellulitis of his right leg. Patient denies having any chills since his admission. He has been started on Amoxicillin 875 mg twice a day. He will need to complete a total of 10 days of the amoxicillin at which point he will have to have resolution of his cellulitis before his pacemaker can be replaced. 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 He should continue his steroid cream as an outpatient to avoid chronic scratching of the skin that can lead to further episodes of cellulitis. 3. Tinea pedis. The patient has athletes foot bilaterally. He has been started on Lotrimin cream which he has been applying to his toes twice a day. He should continue this as an outpatient as well. DISPOSITION: Patient should continue his amoxicillin 875 mg twice a day for the next 7 days to complete a total of 10 days of antibiotic therapy at which point the patient should wait a week for his cellulitis to completely resolve before having his pacemaker replaced at [facility]. My faculty preceptor for this patient encounter was physically present during the encounter and was fully available. All aspects of the patient interview, examination, medical decision making process, and medical care plan development were reviewed and approved by the faculty preceptor. The faculty preceptor is aware and concurs with the plan as stated in the body of this note and will attest to such by his/her cosignature. MIRNA
[2019-05-05] VITALS (11 sets, daily range): BP systolic 96–118; BP diastolic 51–70; O2SAT 93–96
[2019-05-05] MEDS: SLF 3 ML SYR IV SCH (02:52)
[2019-05-05 05:25] LABS: HEMATOCRIT 41.2 % (42.0-52.0); HEMOGLOBIN 13.8 g/dl (13.5-17.5); MEAN CORPUSCULAR HGB CONC 33.5 g/dl (32.0-36.5); MEAN CORPUSCULAR VOLUME 95.6 fl (80.0-96.0); PLATELET COUNT, AUTOMATED 225 10^3/uL (150-450); RED BLOOD COUNT 4.31 10^6/uL (4.30-6.10); WHITE BLOOD COUNT 11.7 10^3/uL (4.0-10.0)
[2019-05-05 05:47] LABS: BLOOD UREA NITROGEN 35 MG/DL (7-18); CALCIUM LEVEL 8.7 MG/DL (8.8-10.2); CARBON DIOXIDE LEVEL 29 MEQ/L (21-32); CHLORIDE LEVEL 105 MEQ/L (98-107); CREATININE FOR GFR 1.24 MG/DL (0.70-1.30); GLOMERULAR FILTRATION RATE > 60.0 (>42); GLUCOSE, FASTING 111 MG/DL (70-100); MAGNESIUM LEVEL 2.1 MG/DL (1.8-2.4); POTASSIUM SERUM 3.6 MEQ/L (3.5-5.1); SODIUM LEVEL 139 MEQ/L (136-145)
[2019-05-05] MEDS ORDERED: METO1TAB7 PO (07:47)
[2019-05-05] MEDS ORDERED: CLOTR1CR TOP (07:47)
[2019-05-05] MEDS ORDERED: TORS10TA3 PO (07:47)
[2019-05-05] MEDS ORDERED: ALDA25TA2 PO (07:47)
[2019-05-05] MEDS ORDERED: ENTR1TAB PO (07:47)
[2019-05-05] MEDS ORDERED: AMOX875T PO (07:47)
--- NOTE | 2019-05-05 08:25 | DS.PDOC ---
Discharge Summary General Date of Admission Apr 29, 2019 at 22:35 Date of Discharge 05/05/2019 Attending Physician: OLINDA RAHMAN MD Specialist/Consultants Involve: PATRICIA CASTAÑEDA MD Specialist/Consultants Involve Dr. Molina (ID) Discharge Summary PROCEDURES PERFORMED DURING STAY: None. ADMITTING DIAGNOSES: 1. Decompensated heart failure DISCHARGE DIAGNOSES: 1. Decompensated heart failure 2. Cellulitis with bacteremia 3. CAD 4. Chronic A. fib 5. Hypertension 6. COPD 7. Diabetes COMPLICATIONS/CHIEF COMPLAINT: Dyspnea, Hypoxia. HISTORY OF PRESENT ILLNESS: 78-year-old man with a history of CAD s/p 2 stents , chronic A. fib, hypertension, s/p single chamber PPM, COPD, CHF and diabetes who presented to the ED with complaints of shortness of breath over a few days without a history of sick contacts, fabiola chest pain, with reported runny nose, cough productive of clear sputum, fever, chills, and difficulty standing up without assistance. HOSPITAL COURSE: In the ED, he was hemodynamically stable, had +JVD and edema on exam, and found to have an increased BNP >2000, an elevated Cr from his baseline with troponin and TSH within normal limits and a non acute ischemic EKG. He had blood cultures drawn, CXR with pulmonary congestion without a fabiola opacity and was ordered for an echo. He was given lasix, duonebs and steroids in the ED and admitted to medicine for acute on chronic systolic and diastolic heart failure. 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 He had a TTE on 04/30 that revealed an LVEF of 30% with global LV hypokinesis and mild dilatation of the left ventricle, concentric LVH and a trace pericardial effusion, with an RVSP of 40-50 mmHg and dilated IVC dilated suggestive of elevated CVP. Cardiology (Initially Dr. Hewitt) recommended discontinuation of ACEi and CCB and starting Entresto 24-26 mg twice a day, and adding spironolactone 25 QD, while increased toprol from 25 to 50mg QD torsemide, and a switch of the initial lasix diuresis to torsemide 10 BID. He also recommended upgrading the patient from a single chamber pacemaker to either a biventricular pacemaker or a biventricular ICD with the initial plan for a transfer to [facility] to have this done this admission that was later deferred due to a noted infection as discussed below. His diuresis and heart failure medication optimization otherwise went well and he is being discharged on Entresto 24-26mg BID, spironolactone 25mg QD, toprol 50mg QD, torsemide 10mg BID, while continuing his Xarelto for chronic Afib as well as indapamide, brilinta and lipitor. His course was c/b bacteremia as 04/30 blood cultures grew pansensitive step C, though subsequent cultures pre-antibiotics were negative. Approximately 72 hours after starting empiric ampicillin without a clear source he developed right lower extremity cellulitis and ID was consulted. On evaluation ID recommended completion of a 7 day course with amoxillicin and deferring the dual chamber pacemaker endevor until his infection had resolved. They also suggested lotrimin for fungal LE infection and resumption of steroid cream for for his known history of dermatitis that likely presented a port of entry. He is therefore being discharged home to complete a now remaining 5 day course of PO antibiotics with cardiology follow up. PHYSICAL EXAMINATION ON DISCHARGE: VITAL SIGNS: Please see below. GENERAL APPEARANCE: Well-nourished, well-developed, NAD HEENT: PERRLA, EOMI, continues to have +JVD CARDIOVASCULAR: Irregularly irregular, S1-S2 LUNGS: . Clear to auscultation bilaterally without fabiola crackles or wheezing ABDOMEN: Obese, distended, median abdominal hernia, otherwise nontender MUSCULOSKELETAL: Range of motion intact in all 4 extremities. NEUROLOGICAL: Cranial nerves 2-12 are grossly intact. EXT:He has trace bilateral pitting edema. His pulses are full and equal bilaterally upper and lower extremities. SKIN: Right leg erythema from ankle to sub-knee. LABORATORY DATA: Please see below. IMAGIN/26: CT A/P Liver is grossly unremarkable. The patient has had a prior cholecystectomy. I do not see definite biliary dilatation. The spleen, adrenals, and pancreas are grossly unremarkable. There are bilateral renal cysts present without hydronephrosis. The cysts are exophytic with the largest in the mid left kidney 3.7 cm in diameter. Punctate calcification is seen in the mid left renal collecting system. The ureters are not dilated. There is mild atherosclerotic calcification of the abdominal aorta without aneurysm. There is no adenopathy. T here is no free air or free fluid. There is no bowel wall thickening. The appendix is normal. Urinary bladder is mildly distended and grossly unremarkable. Prostate is enlarged. There are degenerative changes of the spine. There are small inguinal hernias containing fat. There is a slightly enlarged right inguinal lymph node. IMPRESSION: Slightly enlarged right inguinal lymph node. Patient status post cholecystectomy. Normal appendix. Bilateral renal cysts. No hydronephrosis. Enlarged prostate. 04/30 TTE: 1. Mildly enlarged left ventricle with mildly increased left ventricular wall thickness but a markedly depressed global left ventricular systolic function. There was global hypokinesis. The estimated left ventricular systolic ejection fraction is 30%. 2. Mildly enlarged left atrium. The right atrium and the right ventricle also appeared to be mildly enlarged. The right ventricular free wall was not well visualized. T 3. The atrial septum appeared to be normal without evidence of defect or shunt. 4. Normal aortic root. 5. Trace pericardial effusion noted, no evidence of cardiac tamponade. 6. Mildly calcified aortic valve with minimally restricted leaflet motion. Mildly calcified mitral annulus with normal anterior mitral valve leaflet motion. Normal tricuspid valve and pulmonic valve. The proximal pulmonary artery branches also appear to be normal. 7. The inferior vena cava was mildly enlarged, central venous pressure might be elevated. DOPPLER: It detects trace aortic regurgitation, moderate mitral regurgitation, moderate tricuspid regurgitation and trace pulmonic regurgitation. The calculated pulmonary artery systolic pressure varies between 40-50 mmHg. Assessment of the left ventricular diastolic function was limited in view of the underlying arrhythmias. 04/30: Renal US Multiple ultrasonographic images of the right kidney show the right kidney to measure 12.4 x 5 x 5.5 cm. The renal cortical echoes are increased and cortical medullary differentiation is less than optimal. There are no solid masses seen. Arising from the inferior pole of the right kidney, there is a round hypoechoic nodule which measures 2.1 x 1.7 x 2 cm. I cannot confirm that this is a simple cyst due to the increased echoes centrally. There is no hydronephrosis. The left kidney measures 11.4 x 4 x 6.1 cm. The renal cortical echoes are increased and there is less than optimal cortical medullary differentiation. Multiple anechoic and nearly anechoic structures are seen arising from the left kidney, the largest three measured 3.0 x 2.6 x 3.3 cm, 3.9 x 2.6 x 2.9 cm and 2.5 x 2 x 1.7 cm, all of these exhibit posterior wall enhancement and increased through transmission. There is no definite hydronephrosis or solid masses. Doppler of the urinary bladder was obtained to assess for uro-jet phenomenon which was seen bilaterally. CXR 04/29: No acute cardiopulmonary process appreciated. PROGNOSIS: Guarded ACTIVITY: As tolerated DIET: 2g salt and consistent carb DISCHARGE PLAN: Home with cardiology follow up DISPOSITION: Home DISCHARGE INSTRUCTIONS: 1. Continue medications as prescribed at discharge and follow up with cardiology within 1 week of discharge ITEMS TO FOLLOWUP ON ON OUTPATIENT: 1. Decompensated heart failure 2. Resolution of cellulitis 3. Changing single chamber to dual chamber pacemaker DISCHARGE CONDITION: Stable TIME SPENT ON DISCHARGE: Greater than 30 minutes. Vital Signs/I&Os Vital Signs Date Time Temp Pulse Resp B/P (MAP) Pulse Ox O2 Delivery O2 Flow Rate FiO2 05/05/19 06:00 94 Room Air 05/05/19 04:00 97.2 76 16 96/51 (66) 05/04/19 06:00 1.0 I&O- Last 24 Hours up to 6 AM 05/05/19 06:00 Intake Total 1190 ml Output Total 1850 ml Balance -660 ml Laboratory Data Labs 24H Laboratory Tests 2 05/04/19 11:34: Bedside Glucose (Misc Panel) 107 05/04/19 17:04: Bedside Glucose (Misc Panel) 123H 05/05/19 05:10: Nucleated Red Blood Cells % (auto) 0.0, Anion Gap 5L, Glomerular Filtration Rate > 60.0, Calcium Level 8.7L, Magnesium Level 2.1 CBC/BMP Laboratory Tests 05/05/19 05:10 FSBS Laboratory Tests Test 05/04/19 11:34 05/04/19 17:04 Range/Units Bedside Glucose (Misc Panel) 107 123 83-110 MG/DL Microbiology Microbiology 05/03/19 Blood Culture - Preliminary, Resulted No growth after 24 hours . All specim... 04/30/19 Blood Culture - Preliminary, Resulted No Growth after 72 hours. All specime... 04/30/19 Blood Culture - Preliminary, Resulted No Growth after 72 hours. All specime... 04/29/19 Blood Culture - Final, Complete Streptococcus Group C 04/29/19 Urine Culture - Final, Complete 04/29/19 Respiratory Virus Panel (PCR) (REBECCA) - Final, Complete 04/29/19 Blood Culture - Final, Complete NO GROWTH AFTER 5 DAYS Discharge Medications Scheduled Amlodipine Besylate (Amlodipine Besylate) 5 Mg Tab, 5 MG PO DAILY, (Reported) Amoxicillin (Amoxicillin) 875 Mg Tablet, 875 MG PO BID Atorvastatin Calcium (Atorvastatin Calcium) 40 Mg Tablet, 40 MG PO DAILY, (Repor carey) Cetirizine HCl (Cetirizine HCl) 10 Mg Tablet, 10 MG PO QPM, (Reported) TAKES AT DINNERTIME Cholecalciferol (Vitamin D3) (Vitamin D3) 400 Unit Capsule, 400 UNIT PO DAILY, (Reported) Clotrimazole (Clotrimazole) 30 Gm Cream..g., 0 DOSE TOP BID Finasteride (Finasteride) 5 Mg Tab, 5 MG PO DAILY, (Reported) Garlic (Garlic Oil) 1,000 Mg Capsule, 1 CAP PO DAILY, (Reported) Indapamide (Indapamide) 1.25 Mg Tab, 1.25 MG PO DAILY, (Reported) Metoprolol Succinate (Metoprolol Succinate) 25 Mg Tab.er.24h, 25 MG PO DAILY, (Reported) Metoprolol Succinate (Metoprolol Succinate) 50 Mg Tab.er.24h, 50 MG PO DAILY Quinapril HCl (Quinapril HCl) 10 Mg Tablet, 10 MG PO BID, (Reported) Rivaroxaban (Xarelto) 15 Mg Tablet, 15 MG PO QPM, (Reported) TAKES AT DINNERTIME Sacubitril/Valsartan (Entresto 24 mg-26 mg Tablet) 1 Each Tablet, 1 TAB PO BID Spironolactone (Aldactone) 25 Mg Tablet, 12.5 MG PO DAILY Tamsulosin HCl (Flomax) 0.4 Mg Cap, 0.8 MG PO DAILY, (Reported) Ticagrelor Base (Brilinta) 90 Mg Tablet, 90 MG PO BID, (Reported) Torsemide (Torsemide) 10 Mg Tablet, 10 MG PO BID@,17 Scheduled PRN Betamethasone Dipropionate (Betamethasone Dipropionate) 0.05 % Cre, 0.05 % EXT DAILY PRN for RASH/ITCHING, (Reported) APPLIES TO RASH SPOTS NEEDED Nitroglycerin (Nitrostat) 0.4 Mg Tab.subl, 0.4 MG SL NITRO PRN for CHEST PAIN, (Reported) Allergies Coded Allergies: propoxyphene (Verified Allergy, Unknown, 11/04/18) OLINDA RAHMAN MD May 05, 2019 08:25
[2019-05-05] MEDS: AMOXICILLIN 875 MG TAB PO SCH (08:50)
[2019-05-05] MEDS: METOPROLOL SUCC (TopROL XL) 50MG **XL** TAB PO SCH (08:54)
[2019-05-05] MEDS: SPIRONOLACTONE 12.5MG PER 1/2 TABLET PO SCH (08:54)
[2019-05-05] MEDS: TICAGRELOR 90 MG TABLET (BRILINTA) PO SCH (08:54)
[2019-05-05] MEDS: TORSEMIDE 10 MG TABLET PO SCH (08:54)
[2019-05-05] MEDS: TAMSULOSIN 0.4 MG CAP PO SCH (08:55)
[2019-05-05] MEDS: ATORVASTATIN 20 MG TAB PO SCH (08:55)
[2019-05-05] MEDS: ENTRESTO 24-26MG TABLET (SACUBITRIL/VALSARTAN) PO SCH (08:55)
[2019-05-05] MEDS: FINASTERIDE 5 MG TAB PO SCH (08:55)
[2019-05-05] MEDS: CLOTRIMAZOLE 1% TOPICAL CREAM 30GM TOP SCH (08:55)
[2019-05-05] MEDS: TRIAMCINOLONE ACET 0.1% CREAM 15 GM TOP SCH (08:56)
[2019-05-05] MEDS: HumaLOG INSULIN (NovoLOG) PER UNIT SC SCH (08:56)
[2019-05-06 00:06] LABS: Lyme Disease IgG/IgM Antibodie <0.91 ISR (0.00-0.90); Lyme Disease IgM Ab Quantitati <0.80 index (0.00-0.79)
== END 2019-05-05 12:20 | disposition home or self-care (01) | DRG 292 ==
LOC: M ED 18:51 → M ED INP 22:35 → M PCU 04-30 02:35
PROVIDERS: ADMIT Internal Medicine; ATTEND Internal Medicine
DX: I11.0 Hypertensive heart disease with heart failure (principal); R78.81 Bacteremia; I48.20 Chronic atrial fibrillation, unspecified; N17.9 Acute kidney failure, unspecified; I31.3 Pericardial effusion (noninflammatory); L03.115 Cellulitis of right lower limb; I50.43 Acute on chronic combined systolic (congestive) and diastolic (congestive) heart failure; I08.3 Combined rheumatic disorders of mitral, aortic and tricuspid valves; N18.9 Chronic kidney disease, unspecified; I25.5 Ischemic cardiomyopathy; I25.10 Atherosclerotic heart disease of native coronary artery without angina pectoris; I27.20 Pulmonary hypertension, unspecified; A46 Erysipelas; E78.00 Pure hypercholesterolemia, unspecified; E11.65 Type 2 diabetes mellitus with hyperglycemia; E66.9 Obesity, unspecified; E87.6 Hypokalemia; D72.829 Elevated white blood cell count, unspecified; D69.6 Thrombocytopenia, unspecified; H91.90 Unspecified hearing loss, unspecified ear; J00 Acute nasopharyngitis [common cold]; M06.9 Rheumatoid arthritis, unspecified; R53.1 Weakness; R32 Unspecified urinary incontinence; Z79.899 Other long term (current) drug therapy; Z87.891 Personal history of nicotine dependence; Z95.0 Presence of cardiac pacemaker; Z95.5 Presence of coronary angioplasty implant and graft; Z88.5 Allergy status to narcotic agent; Z98.41 Cataract extraction status, right eye; Z98.42 Cataract extraction status, left eye; Z90.49 Acquired absence of other specified parts of digestive tract; Z85.828 Personal history of other malignant neoplasm of skin; Z68.31 Body mass index [BMI] 31.0-31.9, adult; Z86.010 Personal history of colon polyps; I25.2 Old myocardial infarction; B35.3 Tinea pedis; B95.4 Other streptococcus as the cause of diseases classified elsewhere

== ENCOUNTER 2023-06-03 21:09 | Inpatient (IN) | payer MEDICARE ==
[~2023-06-03] VITALS: Ht 165.1 cm; Wt 106.6 kg
[~2023-06-03 21:09] MED LIST changes: +ALDA25TA2 PO; +AMLO1TAB24 PO; -AMLO5TAB6 PO; +AMOX875T PO; +ASPI-569 PO; -ASPI81TAEC PO; +ATOR40TA75 PO; +BRIL90TA PO; +CETI-24 PO; +CLOTR1CR TOP; +ECOT81TA5 PO; +ENTR1TAB PO; +GARL1000 PO; +INDA1.253 PO; -INDA125TA PO; +METO1TAB32; +METO1TAB32 PO; +METO1TAB7 PO; +NITR4TASL SL; +QUIN10TA32 PO; +TORS10TA3 PO; +XARE15TA PO
[2023-06-03 22:00] LABS: BASO % 0.1 % (0.0-1.0); EOS % 0.2 % (0.0-3.0); HEMATOCRIT 42.9 % (42.0-52.0); HEMOGLOBIN 14.4 g/dl (13.5-17.5); LYMPH # 0.7 10^3/uL (1.5-5.0); LYMPH % 5.7 % (24.0-44.0); MEAN CORPUSCULAR HEMOGLOBIN 33.1 pg (27.0-33.0); MEAN CORPUSCULAR HGB CONC 33.6 g/dl (32.0-36.5); MEAN CORPUSCULAR VOLUME 98.6 fl (80.0-96.0); MONO # 0.8 10^3/uL (0.0-0.8); MONO % 5.9 % (2.0-8.0); NEUTROPHILS # 11.1 10^3/uL (1.5-8.5); NEUTROPHILS % 87.8 % (36.0-66.0); PLATELET COUNT, AUTOMATED 148 10^3/uL (150-450); RED BLOOD COUNT 4.35 10^6/uL (4.30-6.10); WHITE BLOOD COUNT 12.6 10^3/uL (4.0-10.0)
[2023-06-03 22:20] LABS: ALBUMIN 3.5 G/DL (3.2-5.2); ALKALINE PHOSPHATASE 286 U/L (46-116); ALT/SGPT 446 U/L (7.0-40); AST/SGOT 514 U/L (<34); BILIRUBIN,DIRECT 1.7 MG/DL (<0.4); BILIRUBIN,TOTAL 2.3 MG/DL (0.3-1.2); BLOOD UREA NITROGEN 25 MG/DL (9-23); CALCIUM LEVEL 8.7 MG/DL (8.3-10.6); CARBON DIOXIDE LEVEL 21 MMOL/L (20-31); CHLORIDE LEVEL 103 MMOL/L (98-107); CREATININE FOR GFR 1.22 MG/DL (0.70-1.30); GLOMERULAR FILTRATION RATE > 60.0 (>35); GLUCOSE, FASTING 240 MG/DL (74-106); POTASSIUM SERUM 5.2 MMOL/L (3.5-5.1); SODIUM LEVEL 136 MMOL/L (136-145); TOTAL PROTEIN 6.9 G/DL (5.7-8.2)
[2023-06-03 22:34] LABS: LIPASE 2888 U/L (12-53)
[2023-06-03] MEDS ORDERED: NS 1,000 ML IV ONE (22:45)
[2023-06-03 23:43] LABS: CK-MB VALUE MASS < 1.0 NG/ML (<3.6)
[2023-06-03 23:45] LABS: CPK CREATINE PHOSPHOKINASE 121 U/L (46-171); MB/CK RELATIVE INDEX 0.82 (< OR =4)
[2023-06-04] MEDS ORDERED: ONDANSETRON 4MG 2ML VIAL IV ONE
[2023-06-04] MEDS ORDERED: ONDANSETRON 4MG 2ML VIAL As Ordered ONE (00:01)
[2023-06-04] MEDS: GASTROGRAFIN SOLUTION 30ML PO SCH ×2 (00:37→01:00)
[2023-06-04] MEDS ORDERED: ISOVUE-370 76% 100ML VIAL As Ordered ONE (01:40)
[2023-06-04] MEDS ORDERED: NS 1,000 ML IV ONE (02:50)
[2023-06-04] MEDS ORDERED: ERTAPENEM SODIUM 1 GM in NS MINI-BAG PLUS 50 ML IV ONE (02:50)
[2023-06-04] MEDS ORDERED: MORPHINE 4 MG/ML 1ML VIAL IV ONE (03:05)
[2023-06-04] MEDS ORDERED: AUGM0.05 EXT (06:50)
[2023-06-04] MEDS ORDERED: METO1TAB32 PO (06:50)
[2023-06-04] MEDS ORDERED: XARE20TA PO (06:50)
[2023-06-04] MEDS ORDERED: ASPI-161 PO (06:50)
[2023-06-04] MEDS ORDERED: VITA100093 PO (06:50)
[2023-06-04] MEDS ORDERED: SPIR-10 PO (06:50)
[2023-06-04] MEDS ORDERED: C 50TAB PO (06:50)
[2023-06-04] MEDS ORDERED: LISI5TAB11 PO (06:50)
[2023-06-04] MEDS ORDERED: GARL500C2 PO (06:50)
[2023-06-04] MEDS ORDERED: HOME MED LIST COMPLETE! XX SCH (06:55)
[2023-06-04] MEDS ORDERED: NITROGLYCERIN 0.4MG SUBL TABLET SL PRN (07:20)
[2023-06-04 07:53] LABS: BASO % 0.1 % (0.0-1.0); EOS % 0.1 % (0.0-3.0); HEMATOCRIT 39.2 % (42.0-52.0); HEMOGLOBIN 13.3 g/dl (13.5-17.5); LYMPH # 1.4 10^3/uL (1.5-5.0); LYMPH % 11.8 % (24.0-44.0); MEAN CORPUSCULAR HEMOGLOBIN 33.4 pg (27.0-33.0); MEAN CORPUSCULAR HGB CONC 33.9 g/dl (32.0-36.5); MEAN CORPUSCULAR VOLUME 98.5 fl (80.0-96.0); MONO # 0.9 10^3/uL (0.0-0.8); MONO % 7.2 % (2.0-8.0); NEUTROPHILS # 9.8 10^3/uL (1.5-8.5); NEUTROPHILS % 80.3 % (36.0-66.0); PLATELET COUNT, AUTOMATED 157 10^3/uL (150-450); RED BLOOD COUNT 3.98 10^6/uL (4.30-6.10); WHITE BLOOD COUNT 12.2 10^3/uL (4.0-10.0)
[2023-06-04 08:14] LABS: INR 1.37; PROTHROMBIN TIME 16.4 SECONDS (12.5-14.5)
[2023-06-04 08:15] LABS: LIPASE 454 U/L (12-53)
[2023-06-04] MEDS: ASPIRIN 81MG ENTERIC TABLET PO SCH (08:30)
[2023-06-04] MEDS: LR 1,000 ML IV SCH ×2 (08:30→16:47)
[2023-06-04] MEDS: ASCORBIC ACID 500 MG TAB PO SCH (08:30)
[2023-06-04] MEDS: PANTOPRAZOLE 40MG VIAL IV SCH (08:30)
[2023-06-04] MEDS: ATORVASTATIN 20 MG TAB PO SCH (08:30)
[2023-06-04] MEDS: VITAMIN D 1,000 INTERNATIONAL UNITS TABLET PO SCH (08:30)
[2023-06-04] MEDS: lisinopriL 5 MG TAB PO SCH (08:30)
[2023-06-04 08:31] LABS: ALBUMIN 3.3 G/DL (3.2-5.2); ALKALINE PHOSPHATASE 245 U/L (46-116); ALT/SGPT 371 U/L (7.0-40); AST/SGOT 277 U/L (<34); BILIRUBIN,TOTAL 0.8 MG/DL (0.3-1.2); BLOOD UREA NITROGEN 24 MG/DL (9-23); CALCIUM LEVEL 8.1 MG/DL (8.3-10.6); CARBON DIOXIDE LEVEL 20 MMOL/L (20-31); CHLORIDE LEVEL 105 MMOL/L (98-107); CREATININE FOR GFR 1.11 MG/DL (0.70-1.30); GLOMERULAR FILTRATION RATE > 60.0 (>35); GLUCOSE, FASTING 132 MG/DL (74-106); MAGNESIUM LEVEL 1.7 MG/DL (1.8-2.4); POTASSIUM SERUM 4.6 MMOL/L (3.5-5.1); SODIUM LEVEL 135 MMOL/L (136-145); TOTAL PROTEIN 6.5 G/DL (5.7-8.2); TRIGLYCERIDES LEVEL 73 MG/DL (<150)
[2023-06-04] MEDS: FINASTERIDE 5MG TAB PO SCH (08:31)
[2023-06-04] MEDS: TAMSULOSIN 0.4 MG CAP PO SCH (08:31)
[2023-06-04] MEDS: METOPROLOL SUCC *XL* 25MG TAB (TopROL *XL*) PO SCH (08:31)
[2023-06-04 09:15] VITALS: BP 167/83; TEMP 97.3; O2SAT 95
[2023-06-04] MEDS: ONDANSETRON 4MG 2ML VIAL IV PRN (09:31)
[2023-06-04] MEDS: MAG SULF 1GM/100ML (MAG RUN) 1 GM in IV 1 EA IV SCH ×2 (09:34→10:26)
[2023-06-04] MEDS: HYDROMORPHONE HCL 0.5 MG/ 0.5 ML SYRINGE IV PRN ×3 (09:36→19:29)
[2023-06-04] MEDS ORDERED: DEXTROSE 50% 50ML SYRINGE IV PRN (09:45)
[2023-06-04] MEDS ORDERED: GLUCOSE 4GM CHEW TABLET PO PRN (09:45)
[2023-06-04] MEDS ORDERED: GLUCAGON INJ 1MG VIAL SC PRN (09:45)
[2023-06-04 12:07] LABS: HEMOGLOBIN A1c 5.8 % (4.0-6.0)
[2023-06-04 13:56] VITALS: BP 142/69; TEMP 97.9; O2SAT 94
[2023-06-04 18:46] VITALS: BP 150/73; TEMP 98.1; O2SAT 93
[2023-06-04 21:37] VITALS: BP 140/78; TEMP 98.2; O2SAT 93
[2023-06-05] MEDS: HYDROMORPHONE HCL 0.5 MG/ 0.5 ML SYRINGE IV PRN ×3 (00:52→23:15)
[2023-06-05] MEDS: ONDANSETRON 4MG 2ML VIAL IV PRN (00:59)
[2023-06-05] MEDS: LR 1,000 ML IV SCH ×3 (02:45→23:13)
[2023-06-05 05:10] VITALS: BP 116/58; TEMP 97.1; O2SAT 93
[2023-06-05 06:03] LABS: BASO % 0.2 % (0.0-1.0); EOS # 0.1 10^3/uL (0.0-0.5); EOS % 0.4 % (0.0-3.0); HEMATOCRIT 37.5 % (42.0-52.0); HEMOGLOBIN 12.5 g/dl (13.5-17.5); LYMPH # 1.3 10^3/uL (1.5-5.0); MEAN CORPUSCULAR HEMOGLOBIN 33.2 pg (27.0-33.0); MEAN CORPUSCULAR HGB CONC 33.3 g/dl (32.0-36.5); MEAN CORPUSCULAR VOLUME 99.7 fl (80.0-96.0); MONO # 1.2 10^3/uL (0.0-0.8); MONO % 8.8 % (2.0-8.0); NEUTROPHILS # 10.5 10^3/uL (1.5-8.5); NEUTROPHILS % 80.1 % (36.0-66.0); PLATELET COUNT, AUTOMATED 141 10^3/uL (150-450); RED BLOOD COUNT 3.76 10^6/uL (4.30-6.10)
[2023-06-05 06:29] LABS: BLOOD UREA NITROGEN 18 MG/DL (9-23); CALCIUM LEVEL 8.2 MG/DL (8.3-10.6); CARBON DIOXIDE LEVEL 24 MMOL/L (20-31); CHLORIDE LEVEL 104 MMOL/L (98-107); CREATININE FOR GFR 0.97 MG/DL (0.70-1.30); GLOMERULAR FILTRATION RATE > 60.0 (>35); GLUCOSE, FASTING 111 MG/DL (74-106); POTASSIUM SERUM 4.5 MMOL/L (3.5-5.1); SODIUM LEVEL 137 MMOL/L (136-145)
[2023-06-05 08:21] LABS: ALKALINE PHOSPHATASE 185 U/L (46-116); ALT/SGPT 241 U/L (7.0-40); AST/SGOT 117 U/L (<34); BILIRUBIN,DIRECT 0.5 MG/DL (<0.4); BILIRUBIN,TOTAL 0.9 MG/DL (0.3-1.2); TOTAL PROTEIN 5.9 G/DL (5.7-8.2)
[2023-06-05] MEDS: VITAMIN D 1,000 INTERNATIONAL UNITS TABLET PO SCH (09:43)
[2023-06-05] MEDS: ASPIRIN 81MG ENTERIC TABLET PO SCH (09:43)
[2023-06-05] MEDS: TAMSULOSIN 0.4 MG CAP PO SCH (09:43)
[2023-06-05] MEDS: METOPROLOL SUCC *XL* 25MG TAB (TopROL *XL*) PO SCH (09:44)
[2023-06-05] MEDS: ASCORBIC ACID 500 MG TAB PO SCH (09:44)
[2023-06-05] MEDS: FINASTERIDE 5MG TAB PO SCH (09:44)
[2023-06-05] MEDS: ATORVASTATIN 20 MG TAB PO SCH (09:44)
[2023-06-05] MEDS: lisinopriL 5 MG TAB PO SCH (09:45)
[2023-06-05] MEDS: PANTOPRAZOLE 40MG VIAL IV SCH (09:52)
[2023-06-05 14:00] VITALS: BP 133/62; TEMP 99.4; O2SAT 94
[2023-06-05 22:19] VITALS: BP 127/77; TEMP 98.4; O2SAT 97
[2023-06-06 06:27] VITALS: BP 124/63; TEMP 97.8; TEMP 97.9; O2SAT 96
[2023-06-06 07:49] LABS: BASO % 0.3 % (0.0-1.0); EOS # 0.2 10^3/uL (0.0-0.5); EOS % 1.9 % (0.0-3.0); HEMATOCRIT 34.4 % (42.0-52.0); HEMOGLOBIN 11.5 g/dl (13.5-17.5); LYMPH # 1.6 10^3/uL (1.5-5.0); LYMPH % 15.2 % (24.0-44.0); MEAN CORPUSCULAR HEMOGLOBIN 33.2 pg (27.0-33.0); MEAN CORPUSCULAR HGB CONC 33.4 g/dl (32.0-36.5); MEAN CORPUSCULAR VOLUME 99.4 fl (80.0-96.0); MONO % 9.7 % (2.0-8.0); NEUTROPHILS # 7.6 10^3/uL (1.5-8.5); NEUTROPHILS % 72.3 % (36.0-66.0); PLATELET COUNT, AUTOMATED 138 10^3/uL (150-450); RED BLOOD COUNT 3.46 10^6/uL (4.30-6.10); WHITE BLOOD COUNT 10.5 10^3/uL (4.0-10.0)
[2023-06-06 08:33] LABS: ALBUMIN 2.6 G/DL (3.2-5.2); ALKALINE PHOSPHATASE 141 U/L (46-116); ALT/SGPT 150 U/L (7.0-40); AST/SGOT 55 U/L (<34); BILIRUBIN,DIRECT 0.5 MG/DL (<0.4); BILIRUBIN,TOTAL 0.9 MG/DL (0.3-1.2); BLOOD UREA NITROGEN 15 MG/DL (9-23); CARBON DIOXIDE LEVEL 25 MMOL/L (20-31); CHLORIDE LEVEL 102 MMOL/L (98-107); CREATININE FOR GFR 0.88 MG/DL (0.70-1.30); GLOMERULAR FILTRATION RATE > 60.0 (>35); GLUCOSE, FASTING 104 MG/DL (74-106); MAGNESIUM LEVEL 1.8 MG/DL (1.8-2.4); POTASSIUM SERUM 4.1 MMOL/L (3.5-5.1); SODIUM LEVEL 134 MMOL/L (136-145); TOTAL PROTEIN 5.5 G/DL (5.7-8.2)
[2023-06-06] MEDS ORDERED: ENOXAPARIN 100MG/1ML SYRINGE (J1650 PER 10MG) SC SCH (09:00)
[2023-06-06] MEDS: lisinopriL 5 MG TAB PO SCH (10:27)
[2023-06-06] MEDS: ASCORBIC ACID 500 MG TAB PO SCH (10:28)
[2023-06-06] MEDS: ASPIRIN 81MG ENTERIC TABLET PO SCH (10:28)
[2023-06-06] MEDS: VITAMIN D 1,000 INTERNATIONAL UNITS TABLET PO SCH (10:28)
[2023-06-06] MEDS: TAMSULOSIN 0.4 MG CAP PO SCH (10:29)
[2023-06-06] MEDS: PANTOPRAZOLE 40MG VIAL IV SCH (10:29)
[2023-06-06] MEDS: ATORVASTATIN 20 MG TAB PO SCH (10:29)
[2023-06-06 10:30] VITALS: BP 124/63
[2023-06-06] MEDS: METOPROLOL SUCC *XL* 25MG TAB (TopROL *XL*) PO SCH (10:30)
[2023-06-06] MEDS: FINASTERIDE 5MG TAB PO SCH (10:30)
[2023-06-06] MEDS ORDERED: SIMETHICONE 80MG CHEW TAB PO PRN (10:55)
[2023-06-06 14:10] VITALS: BP 132/68; TEMP 98.4; O2SAT 98
[2023-06-06] MEDS ORDERED: LOVE0.8I SC (15:05)
[2023-06-06] MEDS ORDERED: PANT40IN4 IV (15:05)
== END 2023-06-06 17:45 | disposition short-term general hospital (02) | DRG 438 ==
LOC: M ED 21:09 → M ED INP 06-04 06:45 → ENRESERV 06-04 08:29 → M MS4PR 06-04 09:03 → M MS5PR 06-05 18:00
PROVIDERS: ADMIT Internal Medicine; ATTEND Internal Medicine
DX: K85.90 Acute pancreatitis without necrosis or infection, unspecified (principal); K83.1 Obstruction of bile duct; I50.22 Chronic systolic (congestive) heart failure; K56.7 Ileus, unspecified; I48.91 Unspecified atrial fibrillation; I11.0 Hypertensive heart disease with heart failure; R73.03 Prediabetes; R19.7 Diarrhea, unspecified; E83.42 Hypomagnesemia; E78.5 Hyperlipidemia, unspecified; R74.01 Elevation of levels of liver transaminase levels; N40.0 Benign prostatic hyperplasia without lower urinary tract symptoms; Z66 Do not resuscitate; I25.10 Atherosclerotic heart disease of native coronary artery without angina pectoris; K76.0 Fatty (change of) liver, not elsewhere classified; Z79.01 Long term (current) use of anticoagulants; Z79.82 Long term (current) use of aspirin; Z79.899 Other long term (current) drug therapy; Z88.8 Allergy status to other drugs, medicaments and biological substances; Z90.49 Acquired absence of other specified parts of digestive tract; Z95.5 Presence of coronary angioplasty implant and graft; Z95.810 Presence of automatic (implantable) cardiac defibrillator

== ENCOUNTER 2025-01-16 13:27 | Emergency (ER) | payer MEDICARE ==
[~2025-01-16] VITALS: Ht 167.6 cm; Wt 98.2 kg
[~2025-01-16 13:27] MED LIST changes: +ASPI-615 PO; +AUGM0.0511 EXT; +C 50TAB PO; -FLOM0.4C39 PO; +GARL500C6 PO; +LISI5TAB11 PO; +LOVE0.8I SC; +PANT40IN4 IV; +SPIR-10 PO; +TAMS-18 PO; +VITA100093 PO; +XARE20TA PO
[2025-01-16 14:12] LABS: BASO # 0.0 10^3/uL (0.0-0.2); BASO % 0.4 % (0.0-1.0); EOS # 0.2 10^3/uL (0.0-0.5); EOS % 2.0 % (0.0-3.0); LYMPH # 2.5 10^3/uL (1.5-5.0); LYMPH % 29.5 % (24.0-44.0); MONO # 0.8 10^3/uL (0.0-0.8); MONO % 8.8 % (2.0-8.0); NEUTROPHILS # 5.0 10^3/uL (1.5-8.5); NEUTROPHILS % 58.8 % (36.0-66.0); PLATELET COUNT, AUTOMATED 179 10^3/uL (150-450)
[2025-01-16] MEDS ORDERED: ISOVUE-370 76% 100 ML VIAL As Ordered ONE (14:19)
[2025-01-16 14:29] LABS: INR 1.56
[2025-01-16 14:36] LABS: CK-MB VALUE MASS 4.1 NG/ML (<3.6)
[2025-01-16 14:37] LABS: CALCIUM LEVEL 9.6 MG/DL (8.3-10.6); CARBON DIOXIDE LEVEL 25.0 MMOL/L (20-31); CHLORIDE LEVEL 98.0 MMOL/L (98-107); CPK CREATINE PHOSPHOKINASE 126.0 U/L (46-171); CREATININE FOR GFR 1.32 MG/DL (0.70-1.30); GLOMERULAR FILTRATION RATE 53.5 (>35); MB/CK RELATIVE INDEX 3.25 (< OR =4); POTASSIUM SERUM 4.7 MMOL/L (3.5-5.1); SODIUM LEVEL 135.0 MMOL/L (136-145)
[2025-01-16] MEDS: MECLIZINE 25 MG TABLET PO ONE ×2 (15:24→19:20)
[2025-01-16 15:53] LABS: CK-MB VALUE MASS 3.1 NG/ML (<3.6)
[2025-01-16 15:59] LABS: MAGNESIUM LEVEL 1.9 MG/DL (1.8-2.4)
[2025-01-16 16:03] LABS: FREE T4 1.32 NG/DL (0.89-1.76)
[2025-01-16 16:04] LABS: CPK CREATINE PHOSPHOKINASE 111.0 U/L (46-171); MB/CK RELATIVE INDEX 2.79 (< OR =4)
[2025-01-16] MEDS ORDERED: MECL-209 PO (19:08)
[2025-01-16] MEDS ORDERED: MECLIZINE 25 MG TABLET PO ONE (19:15)
[2025-01-16 19:31] VITALS: BP 154/79; TEMP 97.6
[2025-01-16 19:38] VITALS: O2SAT 98
== END 2025-01-16 19:47 | disposition home or self-care (01) ==
LOC: M ED 13:27
DX: H81.4 Vertigo of central origin (principal); I48.91 Unspecified atrial fibrillation; I25.119 Atherosclerotic heart disease of native coronary artery with unspecified angina pectoris; I50.22 Chronic systolic (congestive) heart failure; I11.0 Hypertensive heart disease with heart failure; E78.5 Hyperlipidemia, unspecified; Z88.8 Allergy status to other drugs, medicaments and biological substances; Z79.1 Long term (current) use of non-steroidal anti-inflammatories (NSAID); Z79.899 Other long term (current) drug therapy; Z79.01 Long term (current) use of anticoagulants
CPT/HCPCS: 36415; 70450; 70496; 70498; 71045; 80047; 80048; 82550; 82553; 83735; 84439; 84443; 84484; 85025; 85610; 85730; 86850; 86900; 86901; 93005; 93041; 94760; 99285; Q9967